=== PATIENT | male | born 1955 | race African-American/Black ===

== ENCOUNTER 2017-10-07 22:38 | Emergency (ER) | payer MEDICARE, SELFPAY ==
[2017-10-07 22:39] VITALS: BP 152/107; PULSE 79; RESP 17; TEMP 36.2; O2SAT 98; BMI 31.6
[2017-10-07] MEDS: Morphine 4 MG/ML Syringe IV (23:21)
[2017-10-07] MEDS: Ondansetron 4 MG/2 ML Vial IV (23:21)
[2017-10-07] MEDS: 0.9% Normal Saline 1,000 ML 999 ML IV (23:22)
--- NOTE | 2017-10-07 23:35 | RAD_ITS ---
XR Chest 2 Views INDICATION: PT WITH RIGHT UPPER QUADRANT PAIN SINCE YESTERDAY COMPARISON: None FINDINGS: Heart size and pulmonary vascularity are within normal limits. The lungs are clear without evidence of airspace consolidation or pleural effusion. The osseous structures are grossly unremarkable. RAD/Chest PA and Lateral IMPRESSION: No radiographic evidence of acute intrathoracic disease. at 0001 Reported and signed by: Ava Washington MD Electronically Signed: Ava Washington MD at 23:59 EDT Tel , Service support ,
[2017-10-07 23:37] LABS: Mucous, Urine 0 SEEN /hpf (<or=2+); White Blood Cells 0 SEEN /hpf (0-5)
[2017-10-07 23:40] LABS: Color, Urine Yellow (Yellow); Glucose, Dipstick Normal (Normal); Ketone-Dipstick Negative (Negative); Leukocyte Esterase-Dipstick Negative /ul (Negative); Nitrite-Dipstick Negative (Negative); Occult Blood-Urine 10 /ul (Negative); Protein-Dipstick Negative (Negative); Urine Bilirubin Dipstick Negative (Negative); Urine Clarity Clear (Clear); Urine Urobilinogen Normal (Normal)
[2017-10-07 23:42] LABS: Absolute Neutrophil Count 3.5 X10^3/uL (2.0-7.7); Basophil# 0.01 X10^3/uL; Basophil% 0.1 % (0-1); Eosinophil# 0.14 X10^3/uL; Eosinophils% 1.8 % (0-5); Hematocrit 44.2 % (40-54); Hemoglobin 14.8 g/dl (13.0-16.5); Mean Corp Hgb Conc 33.5 g/gl (32-36); Mean Corpuscular Hgb 29.4 pg (27.0-32.0); Mean Corpuscular Volume 87.7 fL (80-94); Mean Platelet Vol. 12.4 fl (6.2-12.0); Monocyte# 0.45 X10^3/uL; Monocyte% 5.9 % (0-10); Neutrophil # 3.45 X10^3/uL (2.7-7.7); Neutrophil % 45.1 % (47-70); Platelet Count 99 K/mm3 (150-450); RBC Distribution Width SD 44.4 fl (35.1-43.9); Red Blood Count 5.04 M/mm3 (4.6-6.2); White Blood Count 7.7 K/mm3 (4.4-11.0)
[2017-10-07 23:43] LABS: POSITIVE COUNT NO; POSITIVE DIFFERENTIAL NO; POSITIVE MORPHOLOGY NO
[2017-10-07 23:47] LABS: International Normalized Ratio 1.8; Prothrombin Time (Protime)PT. 20.5 SECONDS (11.7-14.9)
[2017-10-07 23:49] LABS: Bacteria RARE /hpf (None Seen); Red Blood Cells-Urine 0-5 SEEN /hpf (0-5); Squamous Epithelial Cells - UA 0-5 SEEN /hpf (0-5)
[2017-10-07 23:55] LABS: AST(SGOT) 25 U/L (15-37); Alanine Aminotransfer ALT/SGPT 29 U/L (16-61); Albumin, Serum 3.5 g/dL (3.2-5.0); Alkaline Phosphatase 130 U/L (45-117); Anion Gap 6 (5-15); BUN 17 mg/dL (7-18); BUN/Creat Ratio 13.9 RATIO (10-20); Bilirubin, Direct 0.06 mg/dL (0.00-0.30); Calcium,Total 8.6 mg/dL (8.5-10.1); Chloride 105 mmol/L (98-107); Creatinine, Serum 1.22 mg/dL (0.70-1.30); EST Glomerular Filtration Rate 64 mL/min (>60); Est Glom Filt Rate - Afr Amer 78 mL/min (>60); Estimated Creatinine Clearance 70.67 ml/min; Globulin 3.3 g/dL (2.2-4.2); Glucose 134 mg/dL (74-106); Lipase 128 U/L (73-393); Potassium 4.1 mmol/L (3.5-5.1); Protein, Total 6.8 g/dL (6.4-8.2); Sodium Level 139 mmol/L (136-145)
--- NOTE | 2017-10-08 00:15 | CT_ITS ---
STUDY: CT ABDOMEN AND PELVIS WITHOUT CONTRAST REASON FOR EXAM: Male, 62 years old. Right upper quadrant pain for one day. RADIATION DOSAGE (If Supplied By Facility): CTDIvol = ( 11.79 ) mGy, DLP = ( 633.14 ) mGycm TECHNIQUE: Transaxial images were obtained from the dome of the diaphragm to the symphysis pubis without oral contrast, and without intravenous contrast. Sagittal and coronal images were reconstructed. Individualized dose optimization techniques were used for this CT. COMPARISON: None. FINDINGS: The visualized lung bases are unremarkable. The visualized portions of the heart are within normal limits. Normal liver. Normal gallbladder and extrahepatic biliary system. Normal spleen. Normal pancreas. Normal bilateral adrenal glands. Normal right kidney. Normal left kidney. The examination is limited without oral contrast. The stomach is somewhat distended. The gastric antrum and pylorus are difficult to accurately evaluate. There are nonspecific fluid-filled small bowel loops. There is no evidence of small bowel obstruction. There is fecal retention. There is diverticulosis of the sigmoid colon but there is no evidence of acute diverticulitis. The appendix is visualized and appears normal. There is atherosclerotic calcification of the abdominal aorta, without a demonstrated aneurysm. Normal inferior vena cava. Normal retroperitoneum. Normal urinary bladder. The prostate is slightly prominent. Normal abdominal wall. There are diffuse degenerative changes of the visualized lumbar spine. CT/Abdomen/Pelvis without Cont IMPRESSION: Fecal retention. Diverticulosis of the sigmoid colon without evidence for acute diverticulitis. Nonspecific fluid-filled small bowel loops without evidence of small bowel obstruction. Otherwise no demonstrated acute process. Electronically Signed: Vasquez Hernandez MD at 1:24 EDT Tel , Service support ,
[2017-10-08 01:26] VITALS: BP 136/94; PULSE 77; RESP 18; O2SAT 97
--- NOTE | 2017-10-08 01:48 | US_ITS ---
STUDY: ABDOMINAL ULTRASOUND - RIGHT UPPER QUADRANT REASON FOR VISIT: Male, 62 years old. Abdominal pain. TECHNIQUE: Ultrasound evaluation of the right upper quadrant was performed with real-time and static mcintosh-scale imaging. TECHNICAL QUALITY: Limited. Examination limited by bowel gas. COMPARISON: None. FINDINGS: Liver: The liver measures 16.5 cm. There is increased echogenicity consistent with fatty infiltration. The bile ducts are within normal limits. There is hepatic color flow. The direction of portal flow is hepatopetal. There is no demonstrated mass lesion. Gallbladder: Normal distended gallbladder. The gallbladder wall measures 2.2 mm. There is a negative sonographic Bermudez's sign. There is no pericholecystic fluid. There are no gallstones. Common Bile Duct (C.B.D.): The common bile duct measures 3.4 mm. Pancreas: There is nonvisualization of the pancreas. Right Kidney: Normal size of the right kidney. The right kidney measures 9.8 x 5.3 x 5.3 cm. Normal renal cortex. The right cortex measures 1.1 cm. There is no demonstrated renal mass or cyst. There is no right hydronephrosis. US/Gallbladder IMPRESSION: Fatty infiltration of the liver. No evidence of gallstones. Limited visualization due to overlying bowel gas. Electronically Signed: Vasquez Hernandez MD at 3:22 EDT Tel , Service support ,
[2017-10-08] MEDS: HYDROmorphone 1 MG/ML Syringe IV (01:50)
[2017-10-08 03:12] VITALS: BP 133/80; PULSE 72; RESP 18; O2SAT 96
--- NOTE | 2017-10-08 03:43 | ED.DCSUM_ITS ---
- ER Visit Summary Date of Service: 10/08/17 Chief Complaint: Abdominal pain History of Present Illness: The patient is a 62 M who presents with abdominal pain. It began yesterday. It is been constant but is worsening. His pain is located in the right upper quadrant. He currently rates it as a 9 out of 10. He reports nausea without vomiting. He denies diarrhea. He denies urinary symptoms. He denies fevers. His pain is sharp. It is worsened with movement palpation or deep inspiration. He denies any chest pain or shortness of breath. Physical Examination: Afebrile vitals are unremarkable Moist mucous membranes Heart regular rate and rhythm Lungs are clear The abdomen is soft nondistended he does have right upper quadrant tenderness but no guarding no rebound no Bermudez's sign Test Results: Laboratory studies notable for thrombocytopenia which appears chronic and similar to prior labs. INR 1.8. Urine normal. CT of the abdomen pelvis shows fecal retention and nonspecific fluid-filled small bowel loops no evidence of small bowel obstruction. Right upper quadrant ultrasound shows fatty liver. Emergency Department Course and Treatment: Initially the patient was treated with IV fluids morphine and Zofran. Laboratory studies were obtained which are essentially unremarkable. I did obtain a CT of the abdomen and pelvis which did not show any clear explanation for the patient's pain. On reevaluation the patient had been sleeping and was resting comfortably but when woken is complaining of severe's pain still at 9 out of 10. He does not appear to be any distress. We discussed additional pain medications and the patient initially stated that he did not want anything that would keep him from driving home. He just wanted some Tylenol. He stated he was okay following up as an outpatient. However when we got up to ambulate the patient he did appear quite uncomfortable holding his abdomen. After speaking again we did decide to give a dose of Dilaudid. I also obtained a right upper quadrant ultrasound which shows a fatty liver but otherwise unremarkable. On reevaluation he states his pain is significantly improved he is resting comfortably. He will be discharged in the care of his . He understands to return for new or worsening symptoms and was instructed on specific signs and symptoms under which to return to the emergency department. Treatment Plan: [] Disposition: Discharge Impression: Right upper quadrant abdominal pain This note was generated with [employer] software. It may contain incorrect words, spelling, and punctuation that were not noted in review of the chart prior to signing ED Disposition - Plan for ED Patient: Chief Complaint: Abd Pain Referrals: Kelsea Tatum MD [Primary Care Provider] -
--- NOTE | 2017-10-08 03:43 | ED.DEP ---
ED Disposition - Plan for ED Patient: Chief Complaint: Abd Pain Instructions: ED Abdominal Pain Unkn Cause Male Referrals: Kelsea Tatum MD [Primary Care Provider] -
[2017-10-08 04:05] VITALS: BP 131/81; PULSE 67; RESP 17; O2SAT 96
== END 2017-10-08 04:06 | disposition home or self-care (01) ==
PROVIDERS: Emergency Provider Emergency Medicine; Family Provider Internal Medicine; PCP Internal Medicine
DX: R10.11 Right upper quadrant pain (principal); R11.0 Nausea; E11.9 Type 2 diabetes mellitus without complications; I10 Essential (primary) hypertension; Z87.891 Personal history of nicotine dependence; Z79.01 Long term (current) use of anticoagulants; K76.0 Fatty (change of) liver, not elsewhere classified
CPT/HCPCS: 71046; 74176; 76705; 80048; 80076; 81001; 83690; 85025; 85610; 96361; 96374; 96375; 99283; J7030; A4216; J2405

== ENCOUNTER 2018-11-17 14:02 | Emergency (ER) | payer MEDICARE, SELFPAY ==
[2018-11-17 14:02] VITALS: BP 150/95; PULSE 84; RESP 16; TEMP 36.8; O2SAT 98; BMI 28.3
--- NOTE | 2018-11-17 14:27 | CT_ITS ---
STUDY: CT BRAIN WITHOUT CONTRAST REASON FOR EXAM: Male, 63 years old. Headache x 1 month with blurred vision. Patient has a left eye prosthesis. RADIATION DOSAGE (If Supplied By Facility): CTDIvol = ( 44.99 ) mGy, DLP = ( 829.85 ) mGycm TECHNIQUE: Transaxial CT imaging of the brain was performed without administration of intravenous contrast material. Individualized dose optimization techniques were used for this CT. COMPARISON: Noncontrast CT brain January 15, 2017. FINDINGS: Left ocular prosthesis again noted. Normal calvarium. Normal size ventricles and extra-axial spaces for the patient's age. Normal white matter tracts of the cerebral hemispheres. Normal basal ganglia and thalami. Normal brainstem. Normal cerebellum. There is relative hyperdensity in the sub and supraclinoid aspect of the right internal carotid artery compared to the right, mildly more asymmetric than on previous exam. This can be associated with acute thromboembolus in the distal internal carotid artery. However, there are no findings of an acute ischemic infarction. There is no intracranial hemorrhage. Normal visualized paranasal sinuses. CT/Brain/Head without Contrast IMPRESSION: Relative hyperdensity in the distalmost right internal carotid artery, finding that can be associated with acute thromboembolus. There is no sign of evolving acute infarct, however. If clinically suspicious, this can further characterized with CTA brain or MRI. Electronically Signed: Evens Shah MD at 15:34 EDT , Service support ,
[2018-11-17] MEDS: 0.9% Normal Saline 1,000 ML 999 ML IV (14:48)
[2018-11-17] MEDS: DiphenhydrAMINE 50 MG/ML Syringe 25 MG IV (14:53)
[2018-11-17] MEDS: proCHLORPERazine 10 MG/2 ML Vial IV (14:54)
[2018-11-17 15:06] LABS: Absolute Lymphocyte Count 2.46 X10^3/ul (0.83-4.51); Basophil# 0.02 X10^3/uL; Basophil% 0.3 % (0-1); Eosinophil# 0.06 X10^3/uL; Eosinophils% 0.8 % (0-5); Hematocrit 47.2 % (40-54); Hemoglobin 16.5 g/dl (13.0-16.5); Lymphocyte # 2.46 X10^3/ul (4.0); Lymphocyte % 31.1 % (19-41); Mean Corpuscular Volume 88.6 fL (80-94); Monocyte# 0.35 X10^3/uL; Monocyte% 4.4 % (0-10); Neutrophil # 5.01 X10^3/uL (2.7-7.7); Neutrophil % 63.3 % (47-70); Platelet Count 91 K/mm3 (150-450); RBC Distribution Width CV 13.8 % (11.6-14.6); RBC Distribution Width SD 44.6 fl (35.1-43.9); Red Blood Count 5.33 M/mm3 (4.6-6.2); White Blood Count 7.9 K/mm3 (4.4-11.0)
[2018-11-17 15:07] LABS: POSITIVE COUNT NO; POSITIVE DIFFERENTIAL NO; POSITIVE MORPHOLOGY NO
[2018-11-17 15:12] LABS: Anion Gap 7 (5-15); BUN 20 mg/dL (7-18); BUN/Creat Ratio 16.3 RATIO (10-20); Calcium,Total 8.9 mg/dL (8.5-10.1); Chloride 108 mmol/L (98-107); Creatinine, Serum 1.23 mg/dL (0.70-1.30); EST Glomerular Filtration Rate 63 mL/min (>60); Est Glom Filt Rate - Afr Amer 77 mL/min (>60); Estimated Creatinine Clearance 69.22 ml/min; Glucose 104 mg/dL (74-106); Potassium 4.1 mmol/L (3.5-5.1); Sodium Level 143 mmol/L (136-145)
--- NOTE | 2018-11-17 15:19 | ED.DCSUM_ITS ---
- ER Visit Summary Date of Service: 11/17/18 Chief Complaint: Headache, blurry vision, dizziness History of Present Illness: The patient is a 63 M 1 who has had intermittent headaches for the past month. He describes them as pounding in the front part of his head. These do not radiate. He tried aspirin which has not helped. He has 1 glass time 1 normal and states he has blurry vision out of the normal eye. He feels like the room is spinning and he is also lightheaded. He is on Coumadin for history of DVT. He denies any trauma or falls. He is a diabetic and has not been checking his sugars recently. Physical Examination: Vital signs reviewed. HEENT exam reveals a left eye that is false. His normal pupil is reactive. Heart is regular rate and rhythm. Lungs clear to auscultation bilaterally. Abdomen is soft and nontender. Extremities have no edema. Skin exam reveals no rashes. Neurologic exam is intact and at baseline otherwise. Test Results: Laboratory studies unremarkable except for platelet of 91. BUN 20. CAT scan of the head shows a hyperdensity at the right internal carotid artery area. Radiologist recommended a CTA of the head to further evaluate this. Emergency Department Course and Treatment: Patient was given Compazine, Benadryl and IV fluids. CTA of the head and neck reveals no evidence of stenosis. Patient feels better. Labs are unremarkable. Patient will be discharged to follow-up with his PCP Treatment Plan: [] Disposition: Discharge home Impression: Headache, dizziness This note was generated with [employer]ation software. It may contain incorrect words, spelling, and punctuation that were not noted in review of the chart prior to signing ED Disposition - Plan for ED Patient: Disposition: Home or Assisted Living Instructions: ED Cephalgia Unspecified Prescriptions: Meclizine HCl [Antivert] 25 mg PO 4X/DAY PRN PRN #20 tab PRN Reason: Dizziness Referrals: Kelsea Tatum MD [Primary Care Provider] -
--- NOTE | 2018-11-17 15:43 | CT_ITS ---
STUDY: CTA OF THE BRAIN REASON FOR EXAM: Male, 63 years old. Dizziness. RADIATION DOSAGE (If Supplied By Facility): CTDIvol = ( 21.89 ) mGy, DLP = ( 772.86 ) mGycm TECHNIQUE: CT angiography was performed with a multi-detector CT scanner. Data acquisition was obtained from the skull base through the vertex following intravenous administration of 100cc IV Isovue 370. MIP images were reconstructed from the axial data set. Post-processing of the angiographic images was performed, with multiplanar reformation and 3D reconstruction. Individualized dose optimization techniques were used for this CT. COMPARISON: Noncontrast CT brain 1501 hours. FINDINGS: Normal bilateral petrous carotid arteries. Tortuous right cavernous carotid artery with a normal supraclinoid bifurcation. Tortuous left cavernous carotid artery with a normal supraclinoid bifurcation. Normal A1 segment of the right anterior cerebral artery. There is hypoplastic development of the A1 segment of the left anterior cerebral artery. Normal intact anterior communicating artery (ACOM). Normal bilateral A2 segments of the anterior cerebral arteries. Normal M1 and M2 segments of the right middle cerebral artery, with a normal M1 bifurcation. Normal M1 and M2 segments of the left middle cerebral artery, with a normal M1 bifurcation. Normal right posterior communicating artery (PCOM). Normal left posterior communicating artery (PCOM). Normal bilateral vertebral arteries. Normal basilar artery with a normal basilar bifurcation. The visualized bilateral superior cerebellar (SCA) arteries are normal. There is smooth moderate narrowing of the overall small caliber P1 segment of the right posterior cerebral artery. Small caliber P1 segment of left superior cerebral artery as well. Normal P2 and visualized P3 segments of the bilateral posterior cerebral arteries. There is no demonstrated aneurysm of the [place] of [place]. Incidental note of a left ocular prosthesis. There is minimal mucoperiosteal thickening in the left maxillary sinus. There is no demonstrated abnormality of the visualized brain. IMPRESSION: 1. Hypoplastic development of the A1 segment of the left anterior cerebral artery. There is good collateral filling from the right via the anterior communicating artery. The anterior intracranial arterial circulation is otherwise intact. 2. Patent bilateral posterior indicating arteries. 3. Patent vertebral and basilar arteries. 4. Moderate proximal narrowing of the small caliber P1 segment of the right posterior cerebral artery as well as small caliber P1 segment of the left posterior cerebral artery. The P2 and P3 segments of both superior cerebral arteries are unremarkable. Electronically Signed: Evens Shah MD at 17:06 EDT , Service support , STUDY: CTA NECK WITH CONTRAST REASON FOR EXAM: Male, 63 years old. Dizziness. RADIATION DOSAGE (If Supplied By Facility): CTDIvol = ( 21.89 ) mGy, DLP = ( 772.86 ) mGycm TECHNIQUE: CT angiography with multi-detector data acquisition was performed from the aortic arch to the skull base following intravenous administration of 100CC IV Isovue 370. MIP images were reconstructed from the axial data set. Post-processing of the angiographic images was performed, with multiplanar reformation and 3D reconstruction. Individualized dose optimization techniques were used for this CT. COMPARISON: None. FINDINGS: There are multilevel degenerative changes of the cervical spine. Incidental note of 3 mm diameter rim calcification in the right lobe of the thyroid gland AORTIC ARCH: Normal visualized aortic arch. Normal origins of the brachiocephalic, left common carotid, and left subclavian arteries. RIGHT CAROTID ARTERIES: Normal right common carotid artery (CCA). There is mild atherosclerotic plaque formation with minimal narrowing of the right carotid bulb. There is focal atherosclerotic plaque formation at the origin of the right internal carotid artery without stenosis. Normal visualized cervical portion of the right internal carotid artery. Normal origin of the right external carotid artery (ECA). LEFT CAROTID ARTERIES: Normal left common carotid artery (CCA). Normal left common carotid bulb. Normal origin of the left internal carotid (ICA) artery without a hemodynamically significant stenosis. Normal visualized cervical portion of the left internal carotid artery. Normal origin of the left external carotid artery (ECA). VERTEBRAL ARTERIES: Atherosclerotic calcification at the takeoff of the right vertebral artery without significant stenosis. There is atherosclerotic calcification with mild narrowing at the takeoff of the left vertebral artery. The cervical segments of both vessels are otherwise patent to the base of the skull. CT/CTA Head W/WO Contrast IMPRESSION: Patent bilateral cervical carotid and vertebral arteries without hemodynamically significant stenosis. Electronically Signed: Evens Shah MD at 17:09 EDT , Service support ,
--- NOTE | 2018-11-17 15:43 | CT_ITS ---
STUDY: CTA OF THE BRAIN REASON FOR EXAM: Male, 63 years old. Dizziness. RADIATION DOSAGE (If Supplied By Facility): CTDIvol = ( 21.89 ) mGy, DLP = ( 772.86 ) mGycm TECHNIQUE: CT angiography was performed with a multi-detector CT scanner. Data acquisition was obtained from the skull base through the vertex following intravenous administration of 100cc IV Isovue 370. MIP images were reconstructed from the axial data set. Post-processing of the angiographic images was performed, with multiplanar reformation and 3D reconstruction. Individualized dose optimization techniques were used for this CT. COMPARISON: Noncontrast CT brain 1501 hours. FINDINGS: Normal bilateral petrous carotid arteries. Tortuous right cavernous carotid artery with a normal supraclinoid bifurcation. Tortuous left cavernous carotid artery with a normal supraclinoid bifurcation. Normal A1 segment of the right anterior cerebral artery. There is hypoplastic development of the A1 segment of the left anterior cerebral artery. Normal intact anterior communicating artery (ACOM). Normal bilateral A2 segments of the anterior cerebral arteries. Normal M1 and M2 segments of the right middle cerebral artery, with a normal M1 bifurcation. Normal M1 and M2 segments of the left middle cerebral artery, with a normal M1 bifurcation. Normal right posterior communicating artery (PCOM). Normal left posterior communicating artery (PCOM). Normal bilateral vertebral arteries. Normal basilar artery with a normal basilar bifurcation. The visualized bilateral superior cerebellar (SCA) arteries are normal. There is smooth moderate narrowing of the overall small caliber P1 segment of the right posterior cerebral artery. Small caliber P1 segment of left superior cerebral artery as well. Normal P2 and visualized P3 segments of the bilateral posterior cerebral arteries. There is no demonstrated aneurysm of the [place] of [place]. Incidental note of a left ocular prosthesis. There is minimal mucoperiosteal thickening in the left maxillary sinus. There is no demonstrated abnormality of the visualized brain. IMPRESSION: 1. Hypoplastic development of the A1 segment of the left anterior cerebral artery. There is good collateral filling from the right via the anterior communicating artery. The anterior intracranial arterial circulation is otherwise intact. 2. Patent bilateral posterior indicating arteries. 3. Patent vertebral and basilar arteries. 4. Moderate proximal narrowing of the small caliber P1 segment of the right posterior cerebral artery as well as small caliber P1 segment of the left posterior cerebral artery. The P2 and P3 segments of both superior cerebral arteries are unremarkable. Electronically Signed: Evens Shah MD at 17:06 EDT , Service support , STUDY: CTA NECK WITH CONTRAST REASON FOR EXAM: Male, 63 years old. Dizziness. RADIATION DOSAGE (If Supplied By Facility): CTDIvol = ( 21.89 ) mGy, DLP = ( 772.86 ) mGycm TECHNIQUE: CT angiography with multi-detector data acquisition was performed from the aortic arch to the skull base following intravenous administration of 100CC IV Isovue 370. MIP images were reconstructed from the axial data set. Post-processing of the angiographic images was performed, with multiplanar reformation and 3D reconstruction. Individualized dose optimization techniques were used for this CT. COMPARISON: None. FINDINGS: There are multilevel degenerative changes of the cervical spine. Incidental note of 3 mm diameter rim calcification in the right lobe of the thyroid gland AORTIC ARCH: Normal visualized aortic arch. Normal origins of the brachiocephalic, left common carotid, and left subclavian arteries. RIGHT CAROTID ARTERIES: Normal right common carotid artery (CCA). There is mild atherosclerotic plaque formation with minimal narrowing of the right carotid bulb. There is focal atherosclerotic plaque formation at the origin of the right internal carotid artery without stenosis. Normal visualized cervical portion of the right internal carotid artery. Normal origin of the right external carotid artery (ECA). LEFT CAROTID ARTERIES: Normal left common carotid artery (CCA). Normal left common carotid bulb. Normal origin of the left internal carotid (ICA) artery without a hemodynamically significant stenosis. Normal visualized cervical portion of the left internal carotid artery. Normal origin of the left external carotid artery (ECA). VERTEBRAL ARTERIES: Atherosclerotic calcification at the takeoff of the right vertebral artery without significant stenosis. There is atherosclerotic calcification with mild narrowing at the takeoff of the left vertebral artery. The cervical segments of both vessels are otherwise patent to the base of the skull. CT/CTA Neck W/WO Contrast IMPRESSION: Patent bilateral cervical carotid and vertebral arteries without hemodynamically significant stenosis. Electronically Signed: Evens Shah MD at 17:09 EDT , Service support ,
[2018-11-17 16:46] VITALS: BP 178/114; PULSE 52; RESP 18; O2SAT 99
--- NOTE | 2018-11-17 16:51 | ED.DEP ---
ED Disposition - Plan for ED Patient: Disposition: Home or Assisted Living Instructions: ED Cephalgia Unspecified Prescriptions: Meclizine HCl [Antivert] 25 mg PO 4X/DAY PRN PRN #20 tab PRN Reason: Dizziness Referrals: Kelsea Tatum MD [Primary Care Provider] -
[2018-11-17 17:10] VITALS: BP 156/100; PULSE 53; RESP 22; O2SAT 99
[2018-11-17 17:47] VITALS: BP 173/97; PULSE 56; RESP 16
== END 2018-11-17 17:48 | disposition home or self-care (01) ==
PROVIDERS: Emergency Provider Emergency Medicine; Family Provider Internal Medicine; PCP Internal Medicine
DX: R51 Headache (principal); R42 Dizziness and giddiness; H53.8 Other visual disturbances; I10 Essential (primary) hypertension; E11.9 Type 2 diabetes mellitus without complications; Z86.718 Personal history of other venous thrombosis and embolism; Z79.01 Long term (current) use of anticoagulants; Z79.899 Other long term (current) drug therapy; Z72.0 Tobacco use
CPT/HCPCS: 70450; 70496; 70498; 80048; 85025; 96361; 96374; 96376; 99284; J7030; Q9967; A4216

== ENCOUNTER 2019-01-12 23:36 | Emergency (ER) | payer MEDICARE, SELFPAY ==
[2019-01-12 23:37] VITALS: BP 147/92; PULSE 75; RESP 17; TEMP 36; O2SAT 93; BMI 26.6
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
[2019-01-13] MEDS: Ketorolac 15 MG/ML Vial IM (00:30)
== END 2019-01-13 00:53 | disposition home or self-care (01) ==
LOC: ED 01-13 00:27
PROVIDERS: Emergency Provider Emergency Medicine; Family Provider Internal Medicine; PCP Internal Medicine
DX: S39.012A Strain of muscle, fascia and tendon of lower back, initial encounter (principal); V89.2XXA Person injured in unspecified motor-vehicle accident, traffic, initial encounter; Y99.9 Unspecified external cause status; Y92.410 Unspecified street and highway as the place of occurrence of the external cause; Z98.1 Arthrodesis status; G89.29 Other chronic pain; F17.200 Nicotine dependence, unspecified, uncomplicated
CPT/HCPCS: 99282

== ENCOUNTER 2019-02-25 21:33 | Emergency (ER) | payer MEDICARE, SELFPAY ==
[2019-02-25 21:34] VITALS: BP 171/100; PULSE 86; RESP 17; TEMP 36.9; O2SAT 98; BMI 27.6
--- NOTE | 2019-02-25 21:41 | ED.RN ---
PT STATES THAT HIS LEG HAS BEEN SWOLLEN AND PAINFUL FOR 2 OR 3 MONTHS.
[2019-02-25] MEDS: HYDROcodone Bitartrate/Apap 5/325 Tablet PO (22:17)
[2019-02-25 22:33] LABS: Absolute Lymphocyte Count 2.37 X10^3/uL (0.83-4.51); Basophil# 0.02 X10^3/uL; Basophil% 0.2 % (0-1); Eosinophil# 0.08 X10^3/uL; Eosinophils% 0.9 % (0-5); Hematocrit 44.9 % (40-54); Hemoglobin 15.3 g/dL (13.0-16.5); Lymphocyte # 2.37 X10^3/ul (4.0); Lymphocyte % 26.2 % (19-41); Mean Corp Hgb Conc 34.1 g/dL (32-36); Mean Corpuscular Hgb 31.1 pg (27.0-32.0); Mean Corpuscular Volume 91.3 fL (80-94); Mean Platelet Vol. 12.8 fl (6.2-12.0); Monocyte# 0.54 X10^3/uL; NRBC Flagged by Analyzer 0 % (0-5); Neutrophil # 6.01 X10^3/uL (2.7-7.7); Neutrophil % 66.5 % (47-70); Platelet Count 95 K/mm3 (150-450); RBC Distribution Width CV 13.7 % (11.6-14.6); RBC Distribution Width SD 46.4 fl (35.1-43.9); Red Blood Count 4.92 M/mm3 (4.6-6.2)
[2019-02-25 22:42] LABS: International Normalized Ratio 2.5; Prothrombin Time (Protime)PT. 26.6 SECONDS (11.7-14.9)
[2019-02-25 22:53] LABS: Anion Gap 1 (5-15); BUN 17 mg/dL (7-18); Calcium,Total 8.4 mg/dL (8.5-10.1); Chloride 108 mmol/L (98-107); Creatinine, Serum 1.21 mg/dL (0.70-1.30); EST Glomerular Filtration Rate 65 mL/min (>60); Est Glom Filt Rate - Afr Amer 78 mL/min (>60); Estimated Creatinine Clearance 69.48 ml/min; Glucose 151 mg/dL (74-106); Potassium 3.6 mmol/L (3.5-5.1); Sodium Level 141 mmol/L (136-145)
--- NOTE | 2019-02-25 23:24 | ED.VIS.GEN ---
History of Present Illness Chief Complaint: Edema Informant: Patient Onset: Days Context: Gradual Onset Timing: Continuous Current Severity: Moderate Maximum Severity: Moderate Narrative: The patient presents to the emergency department with intermittent right calf pain. 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 He has been on Coumadin for 2 years. He states that his INR is been therapeutic. He states from time to time, he will have swelling and some pain. He states the pain was worse tonight. He denies any weakness in the leg. He denies any trauma to the leg. He has not taken anything for the pain. He denies any chest pain or dyspnea. Prior similar symptoms: Yes Recent Illness/Hospitalization: No Past Medical History - Allergies and Home Meds Allergies/Adverse Reactions: Allergies No Known Allergies Allergy (Verified 01/12/19 23:37) Primary Care Physician: Kelsea Tatum MD [Primary Care Provider] - Prior records reviewed: Yes Past Medical History: - - History of DVT Surgical History: - - Viewed Smoking Status: Current every day smoker Review of Systems General: Denies: Chills, Fever, Sweats Eyes: Denies: Visual changes - bilaterally, Diplopia ENT: Denies: Rhinorrhea, Sore throat Cardiovascular: Denies: Chest pain, Palpitations Respiratory: Denies: Dyspnea, Cough, Dyspnea on exertion Gastrointestinal: Denies: Abdominal pain, Nausea, Vomiting, Diarrhea, Melena, Hematochezia Genitourinary: Denies: Dysuria, Hematuria, Frequency Musculoskeletal: Reports: Arthralgias, Swelling, Extremity Pain. Denies: Back pain Skin: Denies: Rash, Wounds Neurological: Denies: Headache, Weakness, Numbness Physical Exam Vital Signs/Narrative: Vital Signs Temp Pulse Resp BP Pulse Ox 02/25/19 21:34 98.4 F 86 17 171/100 H 98 Inital Vital Signs reviewed: Yes General: Well nourished, Well developed, No Acute Distress Head: Normocephalic, Atraumatic Eyes: Perrl, EOMI ENT: Moist mucous membranes, No rhinorrhea Neck: Supple, Nontender Cardiovascular: Regular rate, Regular rhythm, No murmurs Respiratory: No distress, CTA bilaterally, Chest nontender Abdomen: Soft, Nontender, Nondistended, Normal bowel sounds Back: Nontender, Normal Inspection Extremities: Tenderness, Edema, Calf Tenderness - Patient does have asymmetric edema of the right lower extremity. His pulses are normal. His neurologic function is intact. Compartments are soft. Skin: Normal color, No rash Neurological: Alert, Oriented x3, Cranial nerves II-XII grossly intact, Normal Strength, Normal Sensation Psychological: Normal affect, Normal Mood Diagnostic/Tx/Re-eval Abnormal Lab Results 02/25/19 02/25/19 02/25/19 22:26 22:26 22:26 WBC 9.0 RBC 4.92 Hgb 15.3 Hct 44.9 MCV 91.3 MCH 31.1 MCHC 34.1 RDW Std Deviation 46.4 H RDW Coeff of [place] 13.7 Plt Count 95 L MPV 12.8 H Immature Gran % (Auto) 0.200 Neut % (Auto) 66.5 Lymph % (Auto) 26.2 [place] % (Auto) 6.0 Eos % (Auto) 0.9 Baso % (Auto) 0.2 Absolute Neuts (auto) 6.0 Absolute Lymphs (auto) 2.37 Nucleated RBC % 0 PT 26.6 H INR 2.5 Sodium 141 Potassium 3.6 Chloride 108 H Carbon Dioxide 32.0 Anion Gap 1 L BUN 17 Creatinine 1.21 Estim Creat Clear Calc 69.48 Est GFR (MDRD) Af Amer 78 Est GFR (MDRD) Non-Af 65 BUN/Creatinine Ratio 14.0 Glucose 151 H Calcium 8.4 L - Medical Decision Making Patient presents with intermittent calf pain. I was able to review his outpatient ultrasound from 2 weeks ago. He does have chronic DVT. I obtained an INR which was therapeutic. His pulses are normal. He has no evidence of vascular compromise. His neurologic function is intact. He is given 1 dose of analgesics. My suspicion is that this is more of a chronic symptom. He does not want any analgesics for home. He will continue Tylenol elevation. He will be discharged home. Impression 1. Chronic DVT right lower extremity ED Disposition - Plan for ED Patient: Instructions: ED Peripheral Edema, Unilateral Referrals: Kelsea Tatum MD [Primary Care Provider] -
[2019-02-25 23:44] VITALS: BP 139/77; PULSE 71; RESP 16; O2SAT 95
== END 2019-02-25 23:44 | disposition home or self-care (01) ==
LOC: ED 22:04
PROVIDERS: Emergency Provider Emergency Medicine; Family Provider Internal Medicine; PCP Internal Medicine
DX: I82.501 Chronic embolism and thrombosis of unspecified deep veins of right lower extremity (principal); F17.200 Nicotine dependence, unspecified, uncomplicated; Z79.01 Long term (current) use of anticoagulants
CPT/HCPCS: 80048; 85025; 85610; 99282

== ENCOUNTER 2019-04-14 18:58 | Observation (INO) | payer MEDICARE, SELFPAY ==
[2019-04-14] VITALS (8 sets, daily range): BP systolic 148–155; BP diastolic 85–104; PULSE 55–75; RESP 14–18; TEMP 36.3–36.6; O2SAT 96–99; BMI 27.1; BMI 27.2
--- NOTE | 2019-04-14 19:03 | EKG12_ITS ---
Test Reason : CP Blood Pressure : / mmHG Vent. Rate : 067 BPM Atrial Rate : 067 BPM P-R Int : 182 ms QRS Dur : 080 ms QT Int : 380 ms P-R-T Axes : 078 046 062 degrees QTc Int : 401 ms Normal sinus rhythm Normal ECG Confirmed by VIKY BALDERRAMA, TENA ([id number]), news editor ABEL DALTON ([id number]) on 04/18/2019 10:54:17 AM Referred By: Tremayne Edmond Confirmed By:TENA SALMON MD
--- NOTE | 2019-04-14 19:26 | RAD_ITS ---
STUDY: X-RAY CHEST REASON FOR EXAM: Male, 64 years old. Chest pain TECHNIQUE: Frontal view of the chest COMPARISON: X-ray chest October 07, 2017 FINDINGS: The lungs are clear. There are no pleural effusions. There is no pneumothorax. The heart is normal in size. The visualized osseous structures are within normal limits. RAD/Chest 1 View (Portable) IMPRESSION: No acute thoracic pathology. Electronically Signed: Larry Josue, at 19:47 EDT Tel , Service support ,
[2019-04-14 19:31] LABS: Absolute Lymphocyte Count 2.85 X10^3/uL (0.83-4.51); Absolute Neutrophil Count 4.2 X10^3/uL (2.0-7.7); Basophil# 0.02 X10^3/uL; Basophil% 0.2 % (0-1); Eosinophil# 0.56 X10^3/uL; Eosinophils% 6.9 % (0-5); Hematocrit 50.7 % (40-54); Hemoglobin 16.8 g/dL (13.0-16.5); Lymphocyte # 2.85 X10^3/ul (4.0); Lymphocyte % 35.1 % (19-41); Mean Corp Hgb Conc 33.1 g/dL (32-36); Mean Corpuscular Hgb 30.2 pg (27.0-32.0); Mean Platelet Vol. 13.1 fl (6.2-12.0); Monocyte# 0.46 X10^3/uL; Monocyte% 5.7 % (0-10); NRBC Flagged by Analyzer 0 % (0-5); Neutrophil # 4.22 X10^3/uL (2.7-7.7); Neutrophil % 51.9 % (47-70); Platelet Count 92 K/mm3 (150-450); RBC Distribution Width CV 13.7 % (11.6-14.6); RBC Distribution Width SD 45.8 fl (35.1-43.9); Red Blood Count 5.57 M/mm3 (4.6-6.2); White Blood Count 8.1 K/mm3 (4.4-11.0)
[2019-04-14 20:09] LABS: Anion Gap 4 (5-15); BUN 16 mg/dL (7-18); BUN/Creat Ratio 14.7 RATIO (10-20); Calcium,Total 9.3 mg/dL (8.5-10.1); Chloride 104 mmol/L (98-107); Creatinine, Serum 1.09 mg/dL (0.70-1.30); EST Glomerular Filtration Rate 73 mL/min (>60); Est Glom Filt Rate - Afr Amer 88 mL/min (>60); Estimated Creatinine Clearance 77.13 ml/min; Glucose 97 mg/dL (74-106); Potassium 4.6 mmol/L (3.5-5.1); Sodium Level 138 mmol/L (136-145)
--- NOTE | 2019-04-14 20:29 | ED.DCSUM_ITS ---
- ER Visit Summary Date of Service: 04/14/19 Chief Complaint: Chest pain History of Present Illness: The patient is a 64 M presenting with chest pain. Patient states this started 2 days ago. Pain has been intermittent. He states it is worsened with exertion. He has associated shortness of breath. He denies fever. States he has had a cough for 2 months but the exertional chest pain just started 2 days ago. He has history of diabetes, hypertension. He is on Coumadin for history of DVT. He is a smoker. Physical Examination: Vitals are stable. Patient is afebrile. Alert no acute distress. HEENT exam is unremarkable. Neck is supple. Lungs are clear and equal bilaterally. Heart is regular rate and rhythm. Abdomen is soft nontender nondistended. Extremities are unremarkable. Skin is warm and dry. No focal neurologic deficit. Remainder of exam is unremarkable. Emergency Department Course and Treatment: Patient was given aspirin. EKG is sinus rhythm rate 67 with no acute ischemic changes. Chest x-ray shows no acute process. CBC, chemistries unremarkable other than platelet 92. Troponin is negative. INR 2.5. On reevaluation, patient is chest pain-free. Discussed with the hospitalist for observation. Disposition: Observation Impression: Chest pain This note was generated with [employer] dictation software. It may contain incorrect words, spelling, and punctuation that were not noted in review of the chart prior to signing ED Disposition - Plan for ED Patient: Referrals: Kelsea Tatum MD [Primary Care Provider] -
[2019-04-14] MEDS: Aspirin 325 MG Tablet PO (20:46)
[2019-04-14 20:58] LABS: International Normalized Ratio 2.5; Prothrombin Time (Protime)PT. 26.8 SECONDS (11.7-14.9)
--- NOTE | 2019-04-14 21:26 | PCM.HP.STD ---
Problem List (1) HTN (hypertension) Status: Chronic History of Present Illness Date of Admission: 04/14/19 Chief Complaint: chest pain The patient is a 64 year old M attention; tobacco abuse; DVT; overactive bladder who came to emergency department with excruciating chest pain. His chest pain started from his right chest and it radiated anteriorly to lower breastbone. The chest pain started 3 days prior to presentation. He describes his chest pain as sharp and squeezing. It worsens with walking and moving and it improves with laying down. He reports 2 to 3 weeks history of cough. His cough is productive for brownish-green sputum. Stating that both his chest pain and his cough may be from he resuming smoking. He stopped smoking in November of this year (2018) but resumed smoking again about a month ago. He smokes about 2 to 3 packs of cigarettes per day. Past Medical History Past Medical History (Chronic Problems): Chronic Problems HTN (hypertension) (Chronic) Allergies No Known Allergies Allergy (Verified 04/14/19 19:46) Home Medications: Ambulatory Orders Medication Instructions Recorded Lisinopril [Zestril] 40 mg PO DAILY 01/18/14 Amlodipine Besylate 2.5 mg PO DAILY 04/14/19 Oxybutynin [Ditropan] 5 mg PO BID 04/14/19 Warfarin [Coumadin ([facility])] 5 mg PO QODAY 04/14/19 Warfarin [Coumadin ([facility])] 7.5 mg PO QODAY 04/14/19 Surgical History: - - Neck Fracture surgery and back surgery. Lives: Spouse/ Significant Other Smoking Status: Current every day smoker Tobacco Use: Cigarettes Alcohol: None - *Family History Maternal History Items: Diabetes Paternal History Items: Heart Disease, Stroke Review of Systems Constitutional: Denies: Chills, Fever, Weight Change HEENT: Denies: Head Aches, Sinus Congestion, Sinus Drainage Cardiovascular: Reports: Chest Pain. Denies: Palpitations Respiratory: Reports: Cough, Sputum production. Denies: Shortness of breath at rest Gastrointestinal: Denies: Abdominal Pain, Nausea, Vomiting Genitourinary: Denies: Dysuria Musculoskeletal: Denies: Joint Pain, Joint Tenderness Skin: Denies: Rash, Wounds Neurological: Denies: Numbness, Tingling, Focal weakness Psychiatric: Denies: Anxiety, Depression, Homicidal Ideations, Suicidal Ideations Hematologic/ Lymphatic: Denies: Easy Bruising, Easy Bleeding VTE Information - Inpt Only VTE Present on Admission: No VTE Mechan Device Prophylaxis: None VTE Pharm Prophylaxis ordered?: No Reason prophylaxis not ordered:: Treatment Not Indicated - On Coumadin for A. fib; Coumadin continued - Physical Exam Vitals/I&O's: Vital Signs Temp Pulse Resp BP Pulse Ox 97.8 F 55 L 18 155/91 H 97 04/14/19 18:59 04/14/19 21:00 04/14/19 21:00 04/14/19 21:00 04/14/19 21:00 Oxygen Delivery Method Room Air Weight: 90.718 kg Body Mass Index (BMI) 27.1 General: Alert, Oriented x3, Cooperative HEENT: Atraumatic, PERRLA, EOMI, Normocephalic Neck: Supple, No JVD, Negative Carotid Bruits Lungs: Clear to auscultation, Normal air movement Cardiovascular: Regular rate, No murmurs Abdomen: Bowel Sounds Present, Soft, Non Tender Extremities: No edema, Capillary Refill Less than 3 Seconds Skin: No rashes, No breakdown Musculoskeletal: No Tenderness to Palpation of Joints or Extremities Neurological: Cranial nerves II-XII grossly intact Psych/Mental Status: Normal Affect, Appropriate Laboratory Results 04/14/19 19:20: WBC 8.1, RBC 5.57, Hgb 16.8 H, Hct 50.7, MCV 91.0, MCH 30.2, MCHC 33.1, RDW Std Deviation 45.8 H, RDW Coeff of [place] 13.7, Plt Count 92 L, MPV 13.1 H, Immature Gran % (Auto) 0.200, Neut % (Auto) 51.9, Lymph % (Auto) 35.1, [place] % (Auto) 5.7, Eos % (Auto) 6.9 H, Baso % (Auto) 0.2, Absolute Neuts (auto) 4.2, Absolute Lymphs (auto) 2.85, Nucleated RBC % 0 04/14/19 19:20: Sodium 138, Potassium 4.6, Chloride 104, Carbon Dioxide 30.0, Anion Gap 4 L, BUN 16, Creatinine 1.09, Estim Creat Clear Calc 77.13, Est GFR (MDRD) Af Amer 88, Est GFR (MDRD) Non-Af 73, BUN/Creatinine Ratio 14.7, Glucose 97, Calcium 9.3, Troponin I < 0.015 04/14/19 20:35: PT 26.8 H, INR 2.5 Assessment/Plan The patient is a 64 year old M attention; tobacco abuse; DVT; overactive bladder who came to emergency department with excruciating chest pain. Chest pain Place on a monitored bed at PCU CXR independently reviewed confirms no acute cardiopulmonary process. EKG independently reviewed confirms sinus rhythm Received aspirin 325 mg at the emergency department. Continue on aspirin 81 mg daily ASA 81 mg p.o. daily SL NTG 0.4 mg prn as needed for chest pain Serial cardiac enzymes Stat EKG as needed for chest pain Likely his pain is pleuritic. However will rule out cardiac etiology with stress test. Stress test in the AM if the cardiac enzymes are negative Overactive bladder Ditropan continued Hypertension On presentation his blood pressure was not within goal Lisinopril continued Trend blood pressure and adjust blood pressure medication History of DVT On presentation his INR was within goal. Coumadin continued DVT prophylaxis Not indicated since patient is on Coumadin for history of A. fib. Coumadin continued Code Visit OBSV E&M: 05470 Initial observation care L3
--- NOTE | 2019-04-14 23:24 | EKG12_ITS ---
Test Reason : AM EKG Blood Pressure : / mmHG Vent. Rate : 058 BPM Atrial Rate : 058 BPM P-R Int : 214 ms QRS Dur : 080 ms QT Int : 408 ms P-R-T Axes : 063 046 055 degrees QTc Int : 400 ms Sinus bradycardia with 1st degree A-V block Septal infarct , age undetermined Abnormal ECG When compared with ECG of 14-APR-2019 23:06, MANUAL COMPARISON REQUIRED, DATA IS UNCONFIRMED Confirmed by VIKY BALDERRAMA, TENA ([id number]), department editor ABEL DALTON ([id number]) on 04/18/2019 11:28:23 AM Referred By: Tremayne Edmond Confirmed By:TENA SALMON MD
[2019-04-14] MEDS: Oxybutynin 5 MG Tablet PO (23:57)
[2019-04-15] VITALS (9 sets, daily range): BP systolic 137–159; BP diastolic 73–86; PULSE 55–68; RESP 18; TEMP 36.3–36.9; O2SAT 96–100
--- NOTE | 2019-04-15 05:55 | EKG12_ITS ---
Test Reason : CP ADMIT Blood Pressure : / mmHG Vent. Rate : 052 BPM Atrial Rate : 052 BPM P-R Int : 220 ms QRS Dur : 092 ms QT Int : 412 ms P-R-T Axes : 066 023 046 degrees QTc Int : 383 ms Sinus bradycardia with 1st degree A-V block Septal infarct , age undetermined Abnormal ECG When compared with ECG of 04-OCT-2010 10:40, Septal infarct is now Present Confirmed by VIKY BALDERRAMA, TENA ([id number]), editor city ABEL DALTON ([id number]) on 04/18/2019 11:30:16 AM Referred By: Tremayne Edmond Confirmed By:TENA SALMON MD
[2019-04-15] MEDS: Aspirin E.C. 81 MG Tablet PO (06:31)
[2019-04-15] MEDS: Lisinopril 40 MG Tablet PO (06:31)
[2019-04-15 06:39] LABS: Cholesterol 147 mg/dL (200); High Density Lipoprotein 25 mg/dL; Triglycerides 347 mg/dL; Very Low Density Lipoprotein 69 mg/dL (5-40)
[2019-04-15] MEDS: amLODIPine 2.5 MG Tablet PO (11:12)
--- NOTE | 2019-04-15 11:55 | PCM.DC ---
- Discharge Diagnoses Current Active Problems: Current Active and Chronic Problems HTN (hypertension) (Chronic) You will use the following diet at home:: Cardiac Discharge Activity: May Not Drive Allergies/Adverse Reactions: Allergies No Known Allergies Allergy (Verified 04/14/19 19:46) Medications to take at Discharge Lisinopril [Zestril] 40 mg PO DAILY 01/18/14 Oxybutynin [Ditropan] 5 mg PO BID 04/14/19 Warfarin [Coumadin] 5 mg PO QODAY 04/14/19 Warfarin [Coumadin] 7.5 mg PO QODAY 04/14/19 Amlodipine [Norvasc] 5 mg PO DAILY #30 tab 04/15/19 Atorvastatin Calcium 40 mg PO DAILY #30 tab 04/15/19 The following prescriptions were given: Atorvastatin Calcium 40 mg PO DAILY #30 tab Transmission Status: Sent to [facility] Amlodipine [Norvasc] 5 mg PO DAILY #30 tab Transmission Status: Pending to [facility] Primary Care Physician: Kelsea Tatum MD [Primary Care Provider] - Please follow up with your Primary Care Physician in: IN 2 WEEKS Test Results: Test results from this visit will be discussed in further detail at your follow-up appointment, if applicable.
--- NOTE | 2019-04-15 11:59 | STRESSREP ---
Stress Test Report Pharmacologic myocardial perfusion stress test. 64-year-old man with a history of chest pain. Stress protocol: Resting EKG demonstrates sinus rhythm with a rate of 62 bpm normal intervals are noted resting blood pressure 152/104 mmHg. 0.4 mg of regadenoson was infused per usual protocol followed by rapid intravenous and flush injection continuous EKG monitoring was performed. Patient maintained sinus rhythm throughout the recording. The maximum heart rate attained was 100 bpm which was 63% maximum predicted heart rate the maximum workload was 1 metabolic equivalent. At rest there were nonspecific ST-T wave changes noted at peak infusion nonspecific ST-T wave changes were noted. The resting blood pressure was 152/104 with a peak blood pressure 172/110 mmHg. Myocardial perfusion protocol. 12.0 mCi of technetium 99m sestamibi was injected at rest. 0.4 mg of regadenoson was infused per usual protocol at peak infusion 36.0 mCi of technetium 99m sestamibi was injected stress images were obtained stress and rest images were reconstructed and compared in the short axis vertical and horizontal long axis. Gated images was obtained . Perfusion SPECT analysis: Review of the stress images demonstrate a small area of perfusion defect in the basal inferior wall suggestive of the previous infarct as it appears on the resting images as well. No obvious reversibility is noted in any areas to suggest ischemia. The gated ejection fraction is 54%. Conclusion: Myocardial perfusion stress test with no obvious ischemia noted. Preserved ejection fraction. Possible previous basal inferior infarct noted
--- NOTE | 2019-04-15 13:12 | DS.PCM_ITS ---
Discharge Date and Diagnosis Date of Admission: 04/14/19 Date of Discharge: 04/15/19 - Primary Discharge Diagnosis Atypical chest pain most likely pleuritic pain - Secondary Discharge Diagnosis Chronic Problems HTN (hypertension) (Chronic) Hospital Course and Treatment Imaging Results: 04/15/19 05:55 Nuclear Stress Test - Chemical [NM] AM (NON MEDS) Summary of Care Provided: [] The patient is a 64 year old M attention; tobacco abuse; DVT; overactive bladder who came to emergency department with excruciating chest pain. Atypical chest pain seems mainly pleuritic in nature: Patient was admitted in PCU. EKG normal sinus rhythm. Serial troponin enzymes negative. Chest x-ray no acute cardiopulmonary process. Patient had pharmacological myocardial perfusion stress test. There is no stress-induced ischemia or obvious reversibility. EF 54%. Possible previous basal inferior infarct. Patient is being discharged home. Overactive bladder Ditropan continued Hypertension: Blood pressure is elevated. Patient discharged on Norvasc 5 mg daily. On presentation his blood pressure was not within goal Lisinopril 40 mg daily continued Dyslipidemia: Triglycerides 347, LDL 53, HDL 25: Prescription of atorvastatin 40 mg daily given. History of DVT On presentation his INR was within goal. Coumadin continued DVT prophylaxis Not indicated since patient is on Coumadin for history of A. fib. Coumadin continued Discharge medication reconciliation done. Discharge follow-up instructions completed. Discharge process discussed with the patient and all questions were answered to patient's satisfaction. Prescription for atorvastatin and amlodipine given. Follow-up with PCP. Need PFT as an outpatient. Total time spent, exact 35 minutes on discharge meds reconciliation, examination, review of imaging and blood test and discussion with the patient on follow-up instructions. Clinical Impression(s) from Imaging Studies Chest X-Ray 04/14/19 19:26 IMPRESSION: No acute thoracic pathology. Laboratory Results 04/15/19 05:40: Triglycerides 347 H, Cholesterol 147, LDL Cholesterol 53, VLDL Cholesterol 69 H, HDL Cholesterol 25 L Subjective: Patient has right-sided chest pain. Patient also has significant history of his smoking 2-1/2 packs of cigarettes daily since age of 10. Patient has never been evaluated for COPD, no PFT. Chest pain is localized. Patient also has chronic cough. He says his cough is for last 1 month only. Chest pain started 1 day ago currently resolved. And also has chronic back pain - Physical Exam Vitals/I&O's: Vital Signs Temp Pulse Resp BP Pulse Ox 97.3 F L 60 18 159/86 H 99 04/15/19 10:59 04/15/19 11:30 04/15/19 10:59 04/15/19 10:59 04/15/19 10:59 Oxygen Delivery Method Room Air Weight: 200 lb 9.93 oz Body Mass Index (BMI) 27.1 Intake and Output for Last 24 Hours 04/13/19 04/14/19 04/15/19 23:59 23:59 23:59 Intake Total 700 / 700 Output Total 550 / 550 Balance 150 / 150 General: Alert, Oriented x3, Cooperative HEENT: Atraumatic, PERRLA, EOMI, Normocephalic Neck: Supple, No JVD, Negative Carotid Bruits Lungs: No rhonchi, No wheeze, No rales, Diminished - Entry is diminished. Cardiovascular: Regular rate, Regular Rhythm, Normal S1, Normal S2, No murmurs, - - Localized tenderness over right side of chest anteriorly Abdomen: Bowel Sounds Present, Soft, Non Tender, Non-Distended Extremities: No edema, Capillary Refill Less than 3 Seconds Skin: No rashes, No breakdown Musculoskeletal: No Tenderness to Palpation of Joints or Extremities, Arthritic Changes Neurological: Cranial nerves II-XII grossly intact, Deep Tendon Reflexes 2+/4 and Symmetrical, Neuro grossly intact Psych/Mental Status: Normal Affect, Appropriate Laboratory Results 04/14/19 19:20: WBC 8.1, RBC 5.57, Hgb 16.8 H, Hct 50.7, MCV 91.0, MCH 30.2, MCHC 33.1, RDW Std Deviation 45.8 H, RDW Coeff of [place] 13.7, Plt Count 92 L, MPV 13.1 H, Immature Gran % (Auto) 0.200, Neut % (Auto) 51.9, Lymph % (Auto) 35.1, [place] % (Auto) 5.7, Eos % (Auto) 6.9 H, Baso % (Auto) 0.2, Absolute Neuts (auto) 4.2, Absolute Lymphs (auto) 2.85, Nucleated RBC % 0 04/14/19 19:20: Sodium 138, Potassium 4.6, Chloride 104, Carbon Dioxide 30.0, Anion Gap 4 L, BUN 16, Creatinine 1.09, Estim Creat Clear Calc 77.13, Est GFR (MDRD) Af Amer 88, Est GFR (MDRD) Non-Af 73, BUN/Creatinine Ratio 14.7, Glucose 97, Calcium 9.3, Troponin I < 0.015 04/14/19 20:35: PT 26.8 H, INR 2.5 04/14/19 22:42: Troponin I < 0.015 04/15/19 01:32: Troponin I < 0.015 04/15/19 05:40: Triglycerides 347 H, Cholesterol 147, LDL Cholesterol 53, VLDL Cholesterol 69 H, HDL Cholesterol 25 L Current Medications Acetaminophen (Tylenol) 650 mg PO Q6H PRN PRN PRN Reason: Pain Score 1-3/Temp > 100.7 F Amlodipine Besylate (Norvasc) 2.5 mg PO DAILY [facility] Last Admin: 04/15/19 11:12 Dose: 2.5 mg Documented by: Aspirin (Ecotrin) 81 mg PO DAILY@0800 [facility] Last Admin: 04/15/19 06:31 Dose: 81 mg Documented by: Dextrose (D50w Syringe) 0 gm IV X1 PRN; Protocol PRN Reason: Hypoglycemia Glucagon () 1 mg IM .X1 PRN PRN Reason: Hypoglycemia Lisinopril (Zestril) 40 mg PO DAILY [facility] Last Admin: 04/15/19 06:31 Dose: 40 mg Documented by: Nitroglycerin (Nitrostat) 0.4 mg SUBLINGUAL Q5M PRN PRN Reason: CARDIAC/CHEST PAIN Oxybutynin Chloride (Ditropan) 5 mg PO BID [facility] Last Admin: 04/14/19 23:57 Dose: 5 mg Documented by: Warfarin Sodium (Coumadin (Pbkc)) 5 mg PO WeTh@1700 [facility] Warfarin Sodium (Coumadin (Pbkc)) 7.5 mg PO SuMoTuFrSa@1700 [facility] Discharge Activity: May Not Drive Home Medications: Medications to take at Discharge Lisinopril [Zestril] 40 mg PO DAILY 01/18/14 Oxybutynin [Ditropan] 5 mg PO BID 04/14/19 Warfarin [Coumadin] 5 mg PO QODAY 04/14/19 Warfarin [Coumadin] 7.5 mg PO QODAY 04/14/19 Amlodipine [Norvasc] 5 mg PO DAILY #30 tab 04/15/19 Atorvastatin Calcium 40 mg PO DAILY #30 tab 04/15/19 Following Prescrptions Were Given to Patient: Atorvastatin Calcium 40 mg PO DAILY #30 tab Transmission Status: Received by [facility] Amlodipine [Norvasc] 5 mg PO DAILY #30 tab Transmission Status: Received by [facility] Primary Care Physician: Kelsea Tatum MD [Primary Care Provider] - Please follow up with your Primary Care Physician in: IN 2 WEEKS Medical Necessity - Tobacco Use Smoking Status: Current every day smoker Tobacco Use: Cigarettes Meaningful Use Info Meaningful Use Diagnoses (Choose all that apply): None applicable Code Visit OBSV E&M: 54649 Observation care discharge
[2019-04-15] MEDS: Oxybutynin 5 MG Tablet PO (13:37)
== END 2019-04-15 13:11 | disposition home or self-care (01) ==
LOC: ED 21:45 → PCU 21:51
PROVIDERS: Admitting Provider Hospitalist; Emergency Provider Emergency Medicine; Family Provider Internal Medicine; PCP Internal Medicine; Referring Provider Hospitalist; Visit Provider Internal Medicine
DX: R07.89 Other chest pain (principal); E11.9 Type 2 diabetes mellitus without complications; I10 Essential (primary) hypertension; R06.02 Shortness of breath; N32.81 Overactive bladder; E78.5 Hyperlipidemia, unspecified; F17.210 Nicotine dependence, cigarettes, uncomplicated; Z79.899 Other long term (current) drug therapy; Z86.718 Personal history of other venous thrombosis and embolism; Z79.01 Long term (current) use of anticoagulants
CPT/HCPCS: 36415; 71045; 78452; 80048; 80061; 84484; 85025; 85610; 93005; 93017; 99218; 99285; A9500; A4216; G0378; J2785

== ENCOUNTER 2019-08-02 14:55 | Emergency (ER) | payer MEDICARE, SELFPAY ==
[2019-04-14 22:44] VITALS: BMI 27.1
[2019-08-02 14:57] VITALS: BP 142/94; PULSE 93; RESP 18; TEMP 36.6; O2SAT 98; BMI 27.1
[2019-08-02 15:21] VITALS: BP 137/73; BP 139/79; BP 142/91; PULSE 82; PULSE 94
--- NOTE | 2019-08-02 15:24 | ED.VIS.GEN ---
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 Patient states his symptoms began about 6 days ago. He states that he was eating beets and had redness in his bowel movement. He states his only been when he moved his bowels. He states that he waited 2 days, but still was having what he thought was blood with bowel movements. He is had no bleeding without. He states yesterday, he started to feel more lightheaded. He denies any abdominal pain. He has been compliant with his medications. He states he is had no history of prior GI bleed. He did have a colonoscopy about 15 years ago which he states was normal. He denies fevers, weight loss, or night sweats. Prior similar symptoms: No Recent Illness/Hospitalization: No Past Medical History - Allergies and Home Meds Allergies/Adverse Reactions: Allergies No Known Allergies Allergy (Verified 08/02/19 14:56) Primary Care Physician: Lakeisha Vega MD [STAFF PHYSICIAN] - Prior records reviewed: Yes Past Medical History: - Surgical History: noncontributory - DVT, - - Neck Fracture surgery and back surgery. Smoking Status: Current every day smoker - Family History Maternal Family History: Reports: Diabetes Paternal Family History: Reports: Heart Disease, Stroke Review of Systems General: Denies: Chills, Fever, Sweats Eyes: Denies: Visual changes - bilaterally, Diplopia ENT: Denies: Rhinorrhea, Sore throat Cardiovascular: Denies: Chest pain, Palpitations Respiratory: Denies: Dyspnea, Cough, Dyspnea on exertion Gastrointestinal: Reports: Hematochezia. Denies: Abdominal pain, Nausea, Vomiting, Diarrhea, Melena Genitourinary: Denies: Dysuria, Hematuria, Frequency Musculoskeletal: Denies: Back pain, Extremity Pain Skin: Denies: Rash, Wounds Neurological: Denies: Headache, Weakness, Numbness Physical Exam Vital Signs/Narrative: Vital Signs Temp Pulse Resp BP Pulse Ox 08/02/19 14:57 97.8 F 93 18 142/94 H 98 Inital Vital Signs reviewed: Yes General: Well nourished, Well developed, No Acute Distress Head: Normocephalic, Atraumatic Eyes: Perrl, EOMI ENT: Moist mucous membranes, No rhinorrhea Neck: Supple, Nontender Cardiovascular: Regular rate, Regular rhythm, No murmurs Respiratory: No distress, CTA bilaterally, Chest nontender Abdomen: Soft, Nontender, Nondistended, Normal bowel sounds Rectal: Guaiac negative, Nontender Back: Nontender, Normal Inspection Extremities: Nontender, No edema Skin: Normal color, No rash Neurological: Alert, Oriented x3, Cranial nerves II-XII grossly intact, Normal Strength, Normal Sensation Psychological: Normal affect, Normal Mood Diagnostic/Tx/Re-eval - Medical Decision Making Rectal exam was done. There is no active bleeding. The patient does have a hemorrhoid at approximately the 11 o'clock position and a small anal fissure without active bleeding. However, given his history of Coumadin coagulopathy and his symptoms of feeling lightheaded, metabolic work-up was pursued. CBC shows a hemoglobin of 14.9. His INR is mildly subtherapeutic. Renal function including BUN were normal. Orthostatics were negative. At this point, I do not suspect a dangerous cause of his bleeding. He states he is had bleeding with bowel movements for the past 6 days and has normal blood pressure and hemoglobin. I do feel it is safe for outpatient therapy. He will be given outpatient surgical follow-up as he does have hemorrhoid and will likely need colonoscopy. He was counseled on concerning symptoms and reasons to return. He will be discharged home. Impression 1. Stable rectal bleeding ED Disposition - Plan for ED Patient: Instructions: RECTAL BLEED, Stable Prescriptions: Docusate Sodium [Colace] 100 mg PO DAILY #20 cap Prescription Printed Referrals: Lakeisha Vega MD [STAFF PHYSICIAN] -
[2019-08-02] MEDS: 0.9% Normal Saline 1,000 ML 125 ML IV (15:25)
[2019-08-02 15:34] LABS: Absolute Lymphocyte Count 2.34 X10^3/uL (0.83-4.51); Absolute Neutrophil Count 3.6 X10^3/uL (2.0-7.7); Basophil# 0.02 X10^3/uL; Basophil% 0.3 % (0-1); Eosinophil# 0.15 X10^3/uL; Eosinophils% 2.3 % (0-5); Hematocrit 45.1 % (40-54); Hemoglobin 14.9 g/dL (13.0-16.5); Lymphocyte # 2.34 X10^3/ul (4.0); Lymphocyte % 35.6 % (19-41); Mean Corpuscular Volume 90.7 fL (80-94); Mean Platelet Vol. 12.8 fl (6.2-12.0); Monocyte# 0.45 X10^3/uL; Monocyte% 6.8 % (0-10); NRBC Flagged by Analyzer 0 % (0-5); Neutrophil % 54.7 % (47-70); POSITIVE COUNT YES; POSITIVE MORPHOLOGY YES; Platelet Count 92 K/mm3 (150-450); RBC Distribution Width CV 13.9 % (11.6-14.6); RBC Distribution Width SD 46.5 fl (35.1-43.9); Red Blood Count 4.97 M/mm3 (4.6-6.2); White Blood Count 6.6 K/mm3 (4.4-11.0)
[2019-08-02 15:36] LABS: Differential Indicated SCAN CRITERIA MET
[2019-08-02 15:45] LABS: International Normalized Ratio 1.5
[2019-08-02 15:56] LABS: Differential Comment SCANNED
[2019-08-02 16:09] LABS: ALB/GLOB Ratio 1.1 RATIO (0.9-2.4); AST(SGOT) 21 U/L (15-37); Alanine Aminotransfer ALT/SGPT 23 U/L (16-61); Albumin, Serum 3.6 g/dL (3.2-5.0); Alkaline Phosphatase 112 U/L (45-117); Anion Gap 4 (5-15); BUN 17 mg/dL (7-18); BUN/Creat Ratio 13.7 RATIO (10-20); Calcium,Total 8.9 mg/dL (8.5-10.1); Chloride 105 mmol/L (98-107); Creatinine, Serum 1.24 mg/dL (0.70-1.30); EST Glomerular Filtration Rate 63 mL/min (>60); Est Glom Filt Rate - Afr Amer 76 mL/min (>60); Globulin 3.3 g/dL (2.2-4.2); Glucose 130 mg/dL (74-106); Potassium 4.2 mmol/L (3.5-5.1); Protein, Total 6.9 g/dL (6.4-8.2); Sodium Level 139 mmol/L (136-145)
[2019-08-02 16:23] VITALS: BP 178/86; PULSE 82; RESP 16; O2SAT 98
--- NOTE | 2019-08-02 16:27 | ED.RN ---
REVIEWED D/C INSTRUCTIONS, FOLLOW UP CARE, PRESCRIPTION, AND S/S THAT WOULD WARRANT A RETURN TO THE ED WITH PT. PT VERBALIZED AN UNDERSTANDING AND DENIES FURTHER QUESTIONS FOR THIS RN. PT SKIN WARM/DRY, RESP EVEN AND UNLABORED, PT A&O X 3, NO DISTRESS NOTED. PT AMBULATED OUT OF ED, GAIT STEADY.
== END 2019-08-02 16:28 | disposition home or self-care (01) ==
LOC: ED 15:31
PROVIDERS: Emergency Provider Emergency Medicine; PCP Internal Medicine
DX: K62.5 Hemorrhage of anus and rectum (principal); F17.200 Nicotine dependence, unspecified, uncomplicated; Z79.01 Long term (current) use of anticoagulants; Z82.49 Family history of ischemic heart disease and other diseases of the circulatory system; Z86.718 Personal history of other venous thrombosis and embolism
CPT/HCPCS: 80053; 85025; 85610; 86850; 86900; 86901; 96360; 99284; J7030

== ENCOUNTER 2019-08-18 15:56 | Observation (INO) | payer MEDICARE, SELFPAY ==
[2019-08-18] VITALS (8 sets, daily range): BP systolic 107–136; BP diastolic 69–89; PULSE 75–106; RESP 16–22; TEMP 36.9–38; O2SAT 93–98; BMI 27.8; BMI 27.5
--- NOTE | 2019-08-18 17:12 | EKG12_ITS ---
Test Reason : SOB Blood Pressure : / mmHG Vent. Rate : 084 BPM Atrial Rate : 084 BPM P-R Int : 178 ms QRS Dur : 074 ms QT Int : 326 ms P-R-T Axes : 053 015 053 degrees QTc Int : 385 ms Normal sinus rhythm Septal infarct , age undetermined Abnormal ECG Confirmed by KAPIL BALDERRAMA, JILLIAN ([id number]), market editor ABEL DALTON ([id number]) on 08/22/2019 9:53:24 AM Referred By: SAMINA Confirmed By:JILLIAN DICK MD
--- NOTE | 2019-08-18 17:12 | RAD_ITS ---
STUDY: X-RAY CHEST REASON FOR EXAM: Male, 64 years old. PT WITH DIARRHEA AT HOME X 2 DAYS. REPORTS SYNCOPAL EPISODE YESTERDAY, AND DIFFICULTY WITH URINATION TODAY. TECHNIQUE: PA and lateral views of the chest. COMPARISON: 04/14/2019 FINDINGS: The lungs are clear and expanded. There is no demonstrated pleural abnormality. Normal size heart. Normal mediastinum and jolly. Normal visualized pulmonary arteries. Normal visualized aortic arch and descending thoracic aorta. Normal visualized thoracic spine. Normal visualized ribs, clavicles, and shoulders. There is no demonstrated abnormality of the visualized soft tissue structures of the upper abdomen. RAD/Chest 1 View (Portable) IMPRESSION: Normal x-ray examination of the chest. Electronically Signed: Scotty Hutchinson MD at 17:38 EST Tel , Service support ,
--- NOTE | 2019-08-18 17:17 | ED.DCSUM_ITS ---
- ER Visit Summary Date of Service: 08/18/19 Chief Complaint: Diarrhea History of Present Illness: The patient is a 64 M presenting with diarrhea. Patient states he has had diarrhea for the past 2 days. He denies abdominal pain. He has had one episode of vomiting. He denies blood in his stool. He states he is having watery diarrhea. He has had decreased urination, denies dysuria. He denies sick contacts or recent antibiotics. Denies bad food exposure or travel. He is on Coumadin for remote history of DVT. He states yesterday he had a syncopal episode. He states he felt lightheaded and then passed out. He denies injury. He did hit his head. Denies other complaints. Physical Examination: Vitals are stable. Temperature 100.4. Alert no acute distress. HEENT exam dry mucous membranes Neck is supple. Lungs are clear and equal bilaterally. Heart is regular rate and rhythm. Abdomen is soft nontender nondistended. No guarding or rebound Extremities are unremarkable. Skin is warm and dry. No focal neurologic deficit. Remainder of exam is unremarkable. Emergency Department Course and Treatment: Patient is given IV fluids, Zofran, Tylenol. CBC normal except for platelet 82. Chemistries normal except for sodium 133, creatinine 1.65. INR subtherapeutic 1.3. Urinalysis unremarkable. Troponin is negative. EKG is sinus rate of 84. Influenza positive. Chest x-ray shows no acute process. CT head shows no acute process. Patient feels some improvement but continues to feel weak and dehydrated. Discussed with the hospitalist for admission. Disposition: Admission Impression: Diarrhea, dehydration, influenza This note was generated with [employer] dictation software. It may contain incorrect words, spelling, and punctuation that were not noted in review of the chart prior to signing ED Disposition - Plan for ED Patient: Referrals: Kelsea Tatum MD [Primary Care Provider] -
--- NOTE | 2019-08-18 17:20 | CT_ITS ---
STUDY: CT BRAIN WITHOUT CONTRAST REASON FOR EXAM: Male, 64 years old. Fall RADIATION DOSAGE (If Supplied By Facility): DLP = ( 812.98 ) mGycm TECHNIQUE: Transaxial CT imaging of the brain was performed without administration of intravenous contrast material. Individualized dose optimization techniques were used for this CT. COMPARISON: CT brain November 17, 2018 FINDINGS: There is no acute bleed or infarct. There are normal white matter tracts. The ventricles are normal in configuration. There is no hydrocephalus. The visualized paranasal sinuses are clear. The mastoid air cells are well aerated. There is no skull fracture. CT/Brain/Head without Contrast IMPRESSION: No acute intracranial abnormality. Electronically Signed: Larry Josue, at 20:05 EST Tel , Service support ,
[2019-08-18] MEDS: 0.9% Normal Saline 1,000 ML 1000 ML IV (17:40)
[2019-08-18] MEDS: Acetaminophen 500 MG Tablet 1000 MG PO (17:41)
[2019-08-18] MEDS: Ondansetron 4 MG/2 ML Vial IV (17:41)
[2019-08-18 18:08] LABS: ALB/GLOB Ratio 0.9 RATIO (0.9-2.4); AST(SGOT) 27 U/L (15-37); Alanine Aminotransfer ALT/SGPT 30 U/L (16-61); Albumin, Serum 3.8 g/dL (3.2-5.0); Alkaline Phosphatase 112 U/L (45-117); Anion Gap 7 (5-15); BUN 22 mg/dL (7-18); BUN/Creat Ratio 13.3 RATIO (10-20); Calcium,Total 9.1 mg/dL (8.5-10.1); Chloride 101 mmol/L (98-107); Creatinine, Serum 1.65 mg/dL (0.70-1.30); EST Glomerular Filtration Rate 45 mL/min (>60); Est Glom Filt Rate - Afr Amer 55 mL/min (>60); Estimated Creatinine Clearance 50.95 ml/min; Globulin 4.2 g/dL (2.2-4.2); Glucose 107 mg/dL (74-106); Potassium 4.3 mmol/L (3.5-5.1); Sodium Level 133 mmol/L (136-145)
[2019-08-18 18:10] LABS: Absolute Lymphocyte Count 1.82 X10^3/uL (0.83-4.51); Absolute Neutrophil Count 7.5 X10^3/uL (2.0-7.7); Basophil# 0.01 X10^3/uL; Basophil% 0.1 % (0-1); Hematocrit 52.6 % (40-54); Hemoglobin 17.5 g/dL (13.0-16.5); Lymphocyte # 1.82 X10^3/ul (4.0); Lymphocyte % 17.9 % (19-41); Mean Corp Hgb Conc 33.3 g/dL (32-36); Mean Corpuscular Hgb 29.5 pg (27.0-32.0); Mean Corpuscular Volume 88.6 fL (80-94); Mean Platelet Vol. 12.5 fl (6.2-12.0); Monocyte# 0.76 X10^3/uL; Monocyte% 7.5 % (0-10); NRBC Flagged by Analyzer 0 % (0-5); Neutrophil # 7.53 X10^3/uL (2.7-7.7); Neutrophil % 74.2 % (47-70); POSITIVE COUNT YES; POSITIVE MORPHOLOGY YES; Platelet Count 82 K/mm3 (150-450); RBC Distribution Width CV 13.3 % (11.6-14.6); RBC Distribution Width SD 43.3 fl (35.1-43.9); Red Blood Count 5.94 M/mm3 (4.6-6.2); White Blood Count 10.2 K/mm3 (4.4-11.0)
[2019-08-18 18:17] LABS: International Normalized Ratio 1.3; Prothrombin Time (Protime)PT. 16.1 SECONDS (11.7-14.9)
[2019-08-18 18:54] LABS: Lactic Acid 1.5 mmol/L (0.4-1.9)
[2019-08-18 18:56] LABS: Mucous, Urine 0 SEEN /hpf (<or=2+); Red Blood Cells-Urine 0 SEEN /hpf (0-5); Squamous Epithelial Cells - UA 0 SEEN /hpf (0-5); White Blood Cells 0 SEEN /hpf (0-5)
[2019-08-18 19:03] LABS: Color, Urine Yellow (Yellow); Glucose, Dipstick Normal (Normal); Ketone-Dipstick Negative (Negative); Leukocyte Esterase-Dipstick Negative /ul (Negative); Nitrite-Dipstick Negative (Negative); Occult Blood-Urine 25 /ul (Negative); Protein-Dipstick 15 mg/dl (Negative); Specific Gravity, Urine 1.015 (1.002-1.030); Urine Bilirubin Dipstick Negative (Negative); Urine Clarity Sl. Cloudy (Clear); Urine Urobilinogen Normal (Normal)
[2019-08-18 19:06] LABS: Differential Indicated SCAN CRITERIA MET
[2019-08-18 19:07] LABS: Platelet Estimate MOD DEC (ADEQ); Red Cell Morphology NORM C+C NORMAL (NORM C&C)
[2019-08-18 19:41] LABS: Bacteria 2+ /hpf (None Seen)
[2019-08-18] MEDS: 0.9% Normal Saline 1,000 ML 999 ML IV (19:41)
--- NOTE | 2019-08-18 20:41 | HP.PCM_ITS ---
History of Present Illness Date of Admission: 08/18/19 Chief Complaint: shortness of breath, diarrhea, generalised malaise The patient is a 64 year old M with a past medical history as outlined which includes hypertension and diabetes as well as extensive smoking history. He was admitted through the ED on 08/18/2019 with a complaint of generalized malaise and a cough which was productive of yellowish sputum. Symptoms started a few days prior to admission. Patient states he had been having profuse diarrhea and was not able to eat or drink. He also had associated fever and chills. He denied any nausea vomiting and had had several episodes of diarrhea but that had resolved prior to him being admitted. Patient states he thinks he passed out while day ago, and according to her he was on the floor for about 2 hours and had assisted bowel incontinence but no bladder incontinence. He denies any history of seizure and states he came out on his own. His symptoms persisted so he decided to come into the ED today. Of note, he did not get the flu shot during the last flu season. On admission in the ED, temperature was 100.2 Fahrenheit with blood pressure of 132/86. Respiratory rate was 18 and pulse rate was 76. Chemistry showed sodium of 133 and creatinine of 1.65 with BUN of 22. Initial troponin was negative. CBC showed WBC of 10.2 and hemoglobin of 17.5. Brain CT showed no acute intracranial abnormality and EKG showed normal sinus rhythm with no acute ST changes. Chest x-ray was normal. Influenza screen was positive for influenza A. He is been admitted to be managed for acute influenza A infection and EVAN. [] Past Medical History Past Medical History (Chronic Problems): Chronic Problems HTN (hypertension) (Chronic) Allergies No Known Allergies Allergy (Verified 08/18/19 15:56) Home Medications: Ambulatory Orders Medication Instructions Recorded Lisinopril [Zestril] 40 mg PO DAILY 01/18/14 Oxybutynin [Ditropan] 5 mg PO BID 04/14/19 Warfarin [Coumadin] 5 mg PO QODAY 04/14/19 Warfarin [Coumadin] 7.5 mg PO QODAY 04/14/19 Amlodipine [Norvasc] 5 mg PO DAILY #30 tab 04/15/19 Atorvastatin Calcium 40 mg PO DAILY #30 tab 04/15/19 Docusate Sodium [Colace] 100 mg PO DAILY #20 cap 08/02/19 Surgical History: noncontributory - DVT, - - Neck Fracture surgery and back surgery. Lives: Spouse/ Significant Other Smoking Status: Heavy Smoker (>10/day) Tobacco Use: Cigarettes Alcohol: None Drugs: None - *Family History Maternal History Items: Diabetes Paternal History Items: Heart Disease, Stroke Review of Systems Constitutional: Reports: Anorexia, Chills, Fever, Malaise, Weakness, Fatigue Eyes: Denies: Blurred vision HEENT: Denies: Head Aches, Sinus Congestion, Sinus Drainage Cardiovascular: Denies: Chest Pain, Palpitations Respiratory: Reports: Cough, Pleuritic Pain, Shortness of Breath, Sputum production. Denies: Shortness of breath at rest, Shortness of breath upon exertion, Wheezing Gastrointestinal: Reports: Diarrhea. Denies: Abdominal Pain, Nausea, Vomiting Genitourinary: Denies: Dysuria Musculoskeletal: Denies: Joint Pain, Joint Tenderness Skin: Denies: Rash, Wounds Neurological: Denies: Numbness, Tingling, Focal weakness Psychiatric: Denies: Anxiety, Depression, Homicidal Ideations, Suicidal Ideations Hematologic/ Lymphatic: Denies: Easy Bruising, Easy Bleeding VTE Information - Inpt Only VTE Present on Admission: No VTE Pharm Prophylaxis ordered?: Yes - Physical Exam Vitals/I&O's: Vital Signs Temp Pulse Resp BP Pulse Ox 100.2 F H 76 18 122/86 H 96 08/18/19 19:38 08/18/19 19:38 08/18/19 19:38 08/18/19 19:38 08/18/19 19:38 Oxygen Delivery Method Room Air Weight: 205 lb 0.478 oz Body Mass Index (BMI) 27.8 Intake and Output for Last 24 Hours 08/16/19 08/17/19 08/18/19 23:59 23:59 23:59 Intake Total 1000 / 1000 Balance 1000 / 1000 General: Alert, Oriented x3, Cooperative, No apparent distress, Lethargic HEENT: Atraumatic, PERRLA, EOMI, Normocephalic Oral: Dry Mucosa Neck: Supple, No JVD, Negative Carotid Bruits Lungs: - - mildly diminished breath sounds bibasally, no wheezes or crackles. on room air Cardiovascular: Regular rate, Regular Rhythm, Normal S1, Normal S2, No murmurs Abdomen: Bowel Sounds Present, Soft, Non Tender, Non-Distended, No Hepato- splenomegaly Extremities: No clubbing, No cyanosis, No edema, Capillary Refill Less than 3 Seconds Skin: No rashes, No breakdown Musculoskeletal: No Tenderness to Palpation of Joints or Extremities Lymphatic: No Cervical, Supraclavicular, or Inguinal Adenopathy Neurological: Cranial nerves II-XII grossly intact, Neuro grossly intact, Motor Exam 5/5 strength throughout Psych/Mental Status: Normal Affect, Appropriate, Alert and oriented to time, place, person, mood and affect Microbiology Past 72 Hours 08/18/19 17:30 Mucosa - Nose Influenza Types A,B Direct FA (SAVITA) - Final Influenzae A Laboratory Results 08/18/19 17:37: WBC 10.2, RBC 5.94, Hgb 17.5 H, Hct 52.6, MCV 88.6, MCH 29.5, MCHC 33.3, RDW Std Deviation 43.3, RDW Coeff of [place] 13.3, Plt Count 82 L, MPV 12.5 H, Immature Gran % (Auto) 0.300, Neut % (Auto) 74.2 H, Lymph % (Auto) 17.9 L, [place] % (Auto) 7.5, Eos % (Auto) 0.0, Baso % (Auto) 0.1, Absolute Neuts (auto) 7.5, Absolute Lymphs (auto) 1.82, Nucleated RBC % 0, Platelet Estimate MOD DEC, RBC Morphology NORM C+C 08/18/19 17:37: PT 16.1 H, INR 1.3 08/18/19 17:37: Sodium 133 L, Potassium 4.3, Chloride 101, Carbon Dioxide 25.0, Anion Gap 7, BUN 22 H, Creatinine 1.65 H, Estim Creat Clear Calc 50.95, Est GFR (MDRD) Af Amer 55 L, Est GFR (MDRD) Non-Af 45 L, BUN/Creatinine Ratio 13.3, Glucose 107 H, Calcium 9.1, Total Bilirubin 0.60, AST 27, ALT 30, Alkaline Phosphatase 112, Troponin I < 0.015, Total Protein 8.0, Albumin 3.8, Globulin 4.2, Albumin/Globulin Ratio 0.9 08/18/19 17:37: Lactic Acid 1.5 08/18/19 18:52: Urine Color Yellow, Urine Clarity Sl. Cloudy, Urine pH 5.0, Ur Specific [place] 1.015, Urine Protein 15 H, Urine Glucose (UA) Normal, Urine Ketones Negative, Urine Occult Blood 25 H, Urine Nitrite Negative, Urine Bilirubin Negative, Urine Urobilinogen Normal, Ur Leukocyte Esterase Negative, Urine RBC 0 SEEN, Urine WBC 0 SEEN, Ur Squamous Epith Cells 0 SEEN, Urine Bacteria 2+, Urine Mucus 0 SEEN Diagnostic Data Chest X-Ray 08/18/19 17:12 IMPRESSION: Normal x-ray examination of the chest. Electronically Signed: Scotty Hutchinson MD at 17:38 EST Tel , Service support , Brain CT 08/18/19 17:20 IMPRESSION: No acute intracranial abnormality. Electronically Signed: Larry Josue, at 20:05 EST Tel , Service support , Assessment/Plan 64-year-old male admitted with a complaint of fever, chills, shortness of breath and diarrhea. 1. Acute influenza A infection * Symptoms of fever, chills, shortness of breath and diarrhea all likely related to acute influenza. * Has no leukocytosis. Influenza screen positive for influenza A. * Admit to [facility] with telemetry * Start on Tamiflu p.o. 75 mg twice daily for total of 5 days. * Breathing treatments as needed. Hydrate with IV fluid normal saline at 100 cc/h. * 2. EVAN * 9 is 1.65 on admission with a baseline of around 1. Likely prerenal due to dehydration from diarrhea and decreased intake. * Hydrate gently with IV fluid normal saline and monitor. 3. Secondary polycythemia * Hemoglobin is 17.5 which is likely due to dehydration. Will hydrate with IV fluids and trend hemoglobin. 4. Hyponatremia: * Sodium is mildly low at 133 and this also likely due to dehydration. * Will trend with IVF hydration * 5. Hypertnsion: on amlodipine and lisinopril. will hold lisinopril o.a of EVAN. IV hydralazine prn for BP>160/110 6. History of DVT. On coumadin 12.5mg daily. INR is subtherapeutic at 1.3. WIll continue coumadin adn trend INR 7. Hyperlipidemia: on statin DVT prophylaxis: on coumadin for DVT Code status: full code * Patient and wifecounseled extensively about different types of CODE STATUS including full code, DNR CCA and DNR CCA. Patient elects to be full code. Total [id number] time 17 minutes. Code Visit OBSV E&M: 13343 Initial observation care L2 Procedures: 44859 Advncd Care Plan 30 Min
[2019-08-18] MEDS: 0.9% Saline Lock 10 ML Syringe IV (22:28)
[2019-08-18] MEDS: 0.9% Normal Saline 1,000 ML 125 ML IV (22:29)
[2019-08-18] MEDS: Oseltamivir Phosphate 30 MG Capsule PO (22:53)
[2019-08-18] MEDS: Ipratropium/Albuterol Sulfate 3 ML AMPUL.NEB INHALATION (23:05)
[2019-08-19] MEDS: Ipratropium/Albuterol Sulfate 3 ML AMPUL.NEB INHALATION ×2 (02:45→07:30)
[2019-08-19 02:47] VITALS: PULSE 82; RESP 18
[2019-08-19 04:10] VITALS: BP 133/85; PULSE 75; RESP 18; TEMP 38.2; O2SAT 95
[2019-08-19] MEDS: guaiFENesin 10 ML UDC (200MG/10ML) 20 ML PO (04:16)
[2019-08-19] MEDS: Acetaminophen 325 MG Tablet 650 MG PO (04:16)
[2019-08-19 04:21] VITALS: PULSE 82
[2019-08-19 06:10] LABS: Absolute Lymphocyte Count 2.02 X10^3/uL (0.83-4.51); Basophil# 0.02 X10^3/uL; Basophil% 0.3 % (0-1); Hematocrit 43.3 % (40-54); Hemoglobin 14.7 g/dL (13.0-16.5); Lymphocyte # 2.02 X10^3/ul (4.0); Lymphocyte % 26.6 % (19-41); Mean Corp Hgb Conc 33.9 g/dL (32-36); Mean Corpuscular Hgb 30.1 pg (27.0-32.0); Mean Corpuscular Volume 88.5 fL (80-94); Mean Platelet Vol. 12.4 fl (6.2-12.0); Monocyte# 0.51 X10^3/uL; Monocyte% 6.7 % (0-10); NRBC Flagged by Analyzer 0 % (0-5); Neutrophil # 5.02 X10^3/uL (2.7-7.7); POSITIVE COUNT YES; POSITIVE MORPHOLOGY YES; Platelet Count 65 K/mm3 (150-450); RBC Distribution Width CV 13.1 % (11.6-14.6); RBC Distribution Width SD 42.5 fl (35.1-43.9); Red Blood Count 4.89 M/mm3 (4.6-6.2); White Blood Count 7.6 K/mm3 (4.4-11.0)
[2019-08-19 06:11] LABS: Differential Indicated SCAN CRITERIA MET
[2019-08-19 06:13] LABS: International Normalized Ratio 1.5; Prothrombin Time (Protime)PT. 18.1 SECONDS (11.7-14.9)
[2019-08-19 06:29] LABS: Anion Gap 6 (5-15); BUN 16 mg/dL (7-18); Calcium,Total 7.6 mg/dL (8.5-10.1); Chloride 108 mmol/L (98-107); EST Glomerular Filtration Rate 80 mL/min (>60); Est Glom Filt Rate - Afr Amer 97 mL/min (>60); Estimated Creatinine Clearance 84.07 ml/min; Glucose 98 mg/dL (74-106); Potassium 3.9 mmol/L (3.5-5.1); Sodium Level 137 mmol/L (136-145)
[2019-08-19] MEDS: 0.9% Normal Saline 1,000 ML 125 ML IV (06:32)
[2019-08-19 06:33] LABS: Atypical Lymphocyte 1+ %; Differential Comment SCANNED
[2019-08-19 07:30] VITALS: PULSE 94; RESP 19; O2SAT 95
--- NOTE | 2019-08-19 09:59 | DCINST_ITS ---
You will use the following diet at home:: No restrictions Your food should be the consistency of: Regular Your liquids should be the consistency of: Regular/Thin Discharge Activity: Return to Normal Activity Weight Bearing Status: Full weight bearing Allergies/Adverse Reactions: Allergies No Known Allergies Allergy (Verified 08/18/19 15:56) Medications to take at Discharge Lisinopril [Zestril] 40 mg PO DAILY 01/18/14 Oxybutynin [Ditropan] 5 mg PO BID 04/14/19 Warfarin [Coumadin] 5 mg PO WETH 04/14/19 Warfarin [Coumadin] 7.5 mg PO SUMOTUFRSA 04/14/19 Amlodipine [Norvasc] 5 mg PO DAILY #30 tab 04/15/19 Atorvastatin Calcium 40 mg PO DAILY 08/18/19 Cholecalciferol (Vitamin D3) [Vitamin D3] 5,000 unit PO DAILY 08/18/19 Docusate Sodium [Colace] 100 mg PO DAILY 08/18/19 [place]-3/Dha/Epa/Fish Oil [Fish Oil 1,000 mg Softgel] 1,000 mg PO DAILY 08/18/19 Oseltamivir Phosphate [Tamiflu] 30 mg PO BID #8 cap 08/19/19 The following prescriptions were given: Oseltamivir Phosphate [Tamiflu] 30 mg PO BID #8 cap Transmission Status: Pending to [id number] Primary Care Physician: Kelsea Tatum MD [Primary Care Provider] - Please follow up with your Primary Care Physician in: next week-get INR checked again Test Results: Test results from this visit will be discussed in further detail at your follow- up appointment, if applicable.
[2019-08-19 10:00] VITALS: PULSE 80
[2019-08-19] MEDS: Oseltamivir Phosphate 30 MG Capsule PO (10:26)
[2019-08-19] MEDS: amLODIPine 5 MG Tablet PO (10:26)
[2019-08-19] MEDS: Oxybutynin 5 MG Tablet PO (10:26)
[2019-08-19] MEDS: Lisinopril 40 MG Tablet PO (10:26)
[2019-08-19 10:34] VITALS: BP 109/65; PULSE 75; RESP 18; TEMP 37.2; O2SAT 98
--- NOTE | 2019-08-21 09:41 | PCM.DC.SUM ---
Discharge Date and Diagnosis Date of Admission: 08/18/19 Date of Discharge: 08/19/19 - Primary Discharge Diagnosis #1 influenza A #2 dehydration Acute kidney injury was ruled out - Secondary Discharge Diagnosis Chronic Problems HTN (hypertension) (Chronic) Hospital Course and Treatment Operations: None Procedures: None Summary of Care Provided: The patient is a 64 year old M who was seen in the emergency room at [facility] with a chief complaint of shortness of breath, diarrhea, and generalized malaise. Patient stated that he was not able to eat or drink at home. Work-up in the emergency room showed an elevated creatinine and BUN, CBC was unremarkable, chest x-ray was normal. Influenza screen was positive for influenza A, patient was given IV fluids and he was placed in the observation status on MedSurg 3. Labs were monitored, patient's creatinine returned to normal the next day. On 08/19/2019, patient was seen and examined: On examination he appeared in good health and spirits. Vital signs as documented. Skin warm and dry and without overt rashes. Neck without JVD. Lungs clear. Heart exam notable for regular rhythm, normal sounds and absence of murmurs, rubs or gallops. Abdomen unremarkable and without evidence of organomegaly, masses, or abdominal aortic enlargement. Extremities nonedematous. Neuro: Cranial nerves II through XII are grossly intact, no focal motor deficits were noted, sensation to light touch and pinprick intact. Psych: Patient is alert and oriented x3, he does not appear anxious or depressed On 08/19/2019, patient was seen and examined and felt to be in stable condition for discharge home - Physical Exam Vitals/I&O's: Vital Signs Temp Pulse Resp BP Pulse Ox 98.9 F 75 18 109/65 98 08/19/19 10:34 08/19/19 10:34 08/19/19 10:34 08/19/19 10:34 08/19/19 10:34 Oxygen Delivery Method Room Air Weight: 92 kg Body Mass Index (BMI) 27.5 Intake and Output for Last 24 Hours 08/19/19 08/20/19 08/21/19 23:59 23:59 23:59 Intake Total 1000 / 1000 Output Total 1250 / 1250 Balance -250 / -250 Microbiology Past 72 Hours 08/19/19 09:30 Stool Enteric Bacteriology - Final 08/18/19 17:30 Mucosa - Nose Influenza Types A,B Direct FA (SAVITA) - Final Influenzae A Discharge Activity: Return to Normal Activity Weight Bearing Status: Full weight bearing Home Medications: Medications to take at Discharge Lisinopril [Zestril] 40 mg PO DAILY 01/18/14 Oxybutynin [Ditropan] 5 mg PO BID 04/14/19 Warfarin [Coumadin] 5 mg PO WETH 04/14/19 Warfarin [Coumadin] 7.5 mg PO SUMOTUFRSA 04/14/19 Amlodipine [Norvasc] 5 mg PO DAILY #30 tab 04/15/19 Atorvastatin Calcium 40 mg PO DAILY 08/18/19 Cholecalciferol (Vitamin D3) [Vitamin D3] 5,000 unit PO DAILY 08/18/19 Docusate Sodium [Colace] 100 mg PO DAILY 08/18/19 [place]-3/Dha/Epa/Fish Oil [Fish Oil 1,000 mg Softgel] 1,000 mg PO DAILY 08/18/19 Oseltamivir Phosphate [Tamiflu] 30 mg PO BID #8 cap 08/19/19 Following Prescrptions Were Given to Patient: Oseltamivir Phosphate [Tamiflu] 30 mg PO BID #8 cap Transmission Status: Received by [facility] Primary Care Physician: Kelsea Tatum MD [Primary Care Provider] - Please follow up with your Primary Care Physician in: next week-get INR checked again Disposition: Home Minutes spent on discharge:: 30 Patient Condition:: Stable Medical Necessity - Tobacco Use Smoking Status: Heavy Smoker (>10/day) Tobacco Use: Cigarettes Meaningful Use Info Meaningful Use Diagnoses (Choose all that apply): None applicable Code Visit OBSV E&M: 56573 Observation care discharge
== END 2019-08-19 11:52 | disposition home or self-care (01) ==
LOC: ED 17:15 → MS3 20:59
PROVIDERS: Admitting Provider Student in an Organized Health Care Education/Training Program; Emergency Provider Emergency Medicine; PCP Internal Medicine; Visit Provider Internal Medicine
DX: J10.1 Influenza due to other identified influenza virus with other respiratory manifestations (principal); E86.0 Dehydration; I10 Essential (primary) hypertension; R55 Syncope and collapse; F17.210 Nicotine dependence, cigarettes, uncomplicated; D75.1 Secondary polycythemia; E87.1 Hypo-osmolality and hyponatremia; E78.5 Hyperlipidemia, unspecified; Z79.899 Other long term (current) drug therapy; Z79.01 Long term (current) use of anticoagulants; Z86.718 Personal history of other venous thrombosis and embolism
CPT/HCPCS: 36415; 70450; 71045; 80048; 80053; 81001; 83605; 84484; 85025; 85610; 87506; 87804; 93005; 94640; 96361; 96374; 99218; 99285; 99406; J7030; A4216; G0378; J2405

== ENCOUNTER 2020-02-23 17:13 | Emergency (ER) | payer MEDICARE, SELFPAY ==
[2019-08-18 21:31] VITALS: BMI 27.5
[2020-02-23] VITALS (9 sets, daily range): BP systolic 122–172; BP diastolic 62–101; PULSE 60–86; RESP 15–29; TEMP 36.7; O2SAT 96–98; BMI 27.3
--- NOTE | 2020-02-23 17:18 | EKG12_ITS ---
Test Reason : CP Blood Pressure : / mmHG Vent. Rate : 085 BPM Atrial Rate : 086 BPM P-R Int : 152 ms QRS Dur : 072 ms QT Int : 338 ms P-R-T Axes : 060 038 060 degrees QTc Int : 402 ms Sinus rhythm with occasional Premature ventricular complexes Septal infarct (cited on or before 14-APR-2019) Abnormal ECG Confirmed by KAPIL BALDERRAMA, JILLIAN ([id number]), online editor DANIEL ZULUAGA ([id number]) on 02/29/2020 10:17:34 AM Referred By: JASON Confirmed By:JILLIAN DICK MD
[2020-02-23] MEDS: Aspirin 81 MG TAB.CHEW 324 MG PO (17:36)
--- NOTE | 2020-02-23 17:37 | ED.DCSUM_ITS ---
- ER Visit Summary Date of Service: 02/23/20 Chief Complaint: Chest pain History of Present Illness: The patient is a 65 M history of diet-controlled diabetes, hypertension, high cholesterol, gout with prior DVT on Coumadin no prior PE. Denies any cardiac disease with a negative prior stress test. Denies any prior cardiac catheterization. States today to 3 hours ago he was doing some activities at home developed lower sternal anterior chest pain with chest wall pain. Denies any leg pain or swelling. No hemoptysis. No fever or chills. No cough.. Denies any recent exertional dyspnea. Denies any recent exertional chest pain. Physical Examination: Older male complain pain vital signs stable. Initial blood pressure 150/101. On oxygen his pulse ox 90% no hypoxia. H EENT exam unremarkable. Neck nontender no JVD. Lungs clear to auscultation bilaterally. Heart regular rhythm no murmur. Rate about 85. Chest wall tender lower sternal area and lower ribs. No ecchymosis or bruising. No subcu air. No history or signs of trauma. Abdomen soft nontender normal bowel sounds no peritoneal signs. No epigastric pain no right upper quadrant tenderness. No pulsatile mass. Extremities moves all 4. Calves nontender no edema no cords. Equal symmetrical radial pulse. Back nontender. Neurologically is awake alert with no focal motor deficits. Test Results: EKG shows sinus rhythm rate of 85 with PVCs. No signs of AR or ischemia. No ST elevation or depression. CBC normal white count of 9. Hemoglobin 17. Chemistries normal creatinine 1.3 gap of 8 glucose 162 patient is on Coumadin INR 2.1 troponin normal. Chest x- ray portable 1 view read both by myself and the radiologist showed no acute abnormality normal cardiac silhouette mediastinum. Emergency Department Course and Treatment: Patient with reproducible anterior chest wall pain. Which may be chest wall pain. Rule out cardiac etiology. PE is in the differential with his history of DVTs he is on Coumadin and INR is being checked. Will be given nitro and aspirin. Repeat exam patient doing well. He was given 3 sublingual nitro without any relief of his symptoms. He was then given IV morphine and Zofran and his pain resolved. Currently he is doing very well at 21:08 PM. Resting comfortably. Due to the pain being worse with movement, deep breathing or coughing I think is musculoskeletal in etiology. I do not think is cardiac and I do not think it is a PE. He is already anticoagulated and he is therapeutic currently. Treatment Plan: Tylenol for pain. Follow-up if not improving return if worse. Disposition: Discharge Impression: Acute anterior chest pain with chest wall pain History of diet-controlled diabetes History of hypertension and high cholesterol History of of prior DVT on Coumadin This note was generated with [employer] dictation software. It may contain incorrect words, spelling, and punctuation that were not noted in review of the chart prior to signing ED Disposition - Plan for ED Patient: Referrals: Kelsea Tatum MD [Primary Care Provider] -
--- NOTE | 2020-02-23 17:40 | RAD_ITS ---
STUDY: X-RAY CHEST REASON FOR EXAM: Male, 65 years old. Chest pain TECHNIQUE: 2 frontal images of the chest were obtained. COMPARISON: 08/18/2019 FINDINGS: There is no new focal consolidation. Normal size heart. Normal mediastinum and jolly. Normal visualized pulmonary arteries. Normal visualized aortic arch and descending thoracic aorta. Normal visualized thoracic spine. There are degenerative changes of the right shoulder. There is no demonstrated abnormality of the visualized soft tissue structures of the upper abdomen. RAD/Chest 1 View (Portable) IMPRESSION: No acute cardiopulmonary process. Electronically Signed: Chanell Wills MD at 17:53 EDT Tel , Service support ,
[2020-02-23 17:41] LABS: Absolute Neutrophil Count 6.2 X10^3/uL (2.0-7.7); Basophil# 0.01 X10^3/uL; Basophil% 0.1 % (0-1); Eosinophil# 0.11 X10^3/uL; Eosinophils% 1.2 % (0-5); Hematocrit 49.5 % (40-54); Hemoglobin 17.2 g/dL (13.0-16.5); Lymphocyte % 26.8 % (19-41); Mean Corp Hgb Conc 34.7 g/dL (32-36); Mean Corpuscular Hgb 30.2 pg (27.0-32.0); Mean Corpuscular Volume 86.8 fL (80-94); Mean Platelet Vol. 12.8 fl (6.2-12.0); Monocyte# 0.44 X10^3/uL; Monocyte% 4.7 % (0-10); NRBC Flagged by Analyzer 0 % (0-5); Neutrophil # 6.23 X10^3/uL (2.7-7.7); Neutrophil % 66.9 % (47-70); POSITIVE MORPHOLOGY YES; Platelet Count 122 K/mm3 (150-450); RBC Distribution Width CV 13.1 % (11.6-14.6); RBC Distribution Width SD 41.4 fl (35.1-43.9); White Blood Count 9.3 K/mm3 (4.4-11.0)
[2020-02-23 17:44] LABS: Differential Indicated SCAN CRITERIA MET
[2020-02-23] MEDS: Nitroglycerin SL (ED/IMG/CATH) 0.4 MG TABLET SUBLINGUAL ×3 (17:45→18:01)
[2020-02-23 17:54] LABS: Anion Gap 8 (5-15); BUN 23 mg/dL (7-18); BUN/Creat Ratio 17.3 RATIO (10-20); Calcium,Total 9.8 mg/dL (8.5-10.1); Chloride 106 mmol/L (98-107); Creatinine, Serum 1.33 mg/dL (0.70-1.30); EST Glomerular Filtration Rate 58 mL/min (>60); Est Glom Filt Rate - Afr Amer 70 mL/min (>60); Glucose 162 mg/dL (74-106); Sodium Level 136 mmol/L (136-145)
[2020-02-23 18:09] LABS: International Normalized Ratio 2.1; Prothrombin Time (Protime)PT. 22.8 SECONDS (11.7-14.9)
[2020-02-23] MEDS: morphine 8 MG/ML Syringe 6 MG IV (18:35)
[2020-02-23] MEDS: Ondansetron 4 MG/2 ML Vial IV (18:35)
--- NOTE | 2020-02-23 21:13 | ED.DEP ---
ED Disposition - Plan for ED Patient: Disposition: Home or Assisted Living Instructions: ED Chest Pain Atypical Unkn Cause Referrals: Kelsea Tatum MD [Primary Care Provider] - 3-5 Days if not improving Additional Instructions: Ice to your chest wall. Tylenol for pain. Continue your current medications. Follow-up with your doctor if not improving return to ER if you are feeling a lot worse.
== END 2020-02-23 21:22 | disposition home or self-care (01) ==
PROVIDERS: Emergency Provider Emergency Medicine; PCP Internal Medicine
DX: R07.89 Other chest pain (principal); E11.9 Type 2 diabetes mellitus without complications; E78.00 Pure hypercholesterolemia, unspecified; I10 Essential (primary) hypertension; Z79.01 Long term (current) use of anticoagulants; Z86.718 Personal history of other venous thrombosis and embolism; M10.9 Gout, unspecified
CPT/HCPCS: 71045; 80048; 84484; 85025; 85610; 93005; 96374; 96375; 99285; A4216; J2405

== ENCOUNTER → 2022-02-27 | Outpatient (CLI) | payer MEDICARE, SELFPAY ==
[2022-02-27 12:34] LABS: International Normalized Ratio 1.4; Prothrombin Time (Protime)PT. 17.1 SECONDS (11.7-14.9)
== END | disposition home or self-care (01) ==
PROVIDERS: PCP Internal Medicine; Visit Provider Nurse Practitioner
DX: I82.499 Acute embolism and thrombosis of other specified deep vein of unspecified lower extremity (principal)
CPT/HCPCS: 85610